=== PATIENT | female | born 1990 | race African-American/Black ===

== ENCOUNTER 2017-01-31 23:30 | Emergency (ER) | payer MEDICAID ==
[~2017-01-31] VITALS: Ht 152.4 cm; Wt 61.0 kg
[~2017-01-31 23:30] MED LIST: FOLI-43 PO; HYDR-519 PO; HYDR500C18 PO
[2017-02-01] MEDS ORDERED: MORPHINE SULFATE 4 MG/ML CPJ (NOT FOR IM USE) IV ONE (02:30)
[2017-02-01] MEDS ORDERED: DIPHENHYDRAMINE 50MG/ML VIAL IV ONE (02:30)
[2017-02-01 03:01] LABS: HEMATOCRIT. 28.6 % (36.0-48.0); HEMOGLOBIN. 9.2 g/dL (12.0-16.0); MEAN CORPUSCULAR HEMOGLOBIN 24.7 pg (28.0-32.0); MEAN CORPUSCULAR HGB CONC 32.2 g/dL (31.0-37.0); MEAN CORPUSCULAR VOLUME 76.9 fL (81.0-99.0); RED BLOOD CELL COUNT 3.72 mill/uL (4.2-5.4); RED CELL DISTRIBUTION WIDTH 23.5 % (11.6-14.6)
[2017-02-01 03:02] LABS: DIFFERENTIAL COMMENT 1
[2017-02-01 03:16] LABS: MEAN PLATELET VOLUME 9.6 fl (7.4-10.4); PLATELET 267 x1000/uL (130-400)
[2017-02-01] MEDS ORDERED: OXYCODONE HCL/ACETAMINOPHEN 5/325MG TABLET PO ONE (06:00)
[2017-02-01 06:03] LABS: ATYPICAL LYMPHOCYTES 1; NUCLEATED RED BLOOD CELLS 9 /100 WBC; PLATELET ESTIMATE NORMAL
[2017-02-01 06:04] LABS: HYPOCHROMASIA 1+
[2017-02-01 06:05] LABS: ANISOCYTOSIS 1+
[2017-02-01 06:12] VITALS: BP 131/69
== END 2017-02-01 07:00 | disposition home or self-care (01) ==
LOC: ER 23:32
DX: D57.00 Hb-SS disease with crisis, unspecified (principal); F17.210 Nicotine dependence, cigarettes, uncomplicated; Z88.1 Allergy status to other antibiotic agents; Z88.5 Allergy status to narcotic agent; Z79.899 Other long term (current) drug therapy; Z90.49 Acquired absence of other specified parts of digestive tract
CPT/HCPCS: 36415; 85025; 85044; 96374; 96375; 99284; J1200; J2270; Z7610

== ENCOUNTER 2017-02-07 18:03 | Emergency (ER) | payer MEDICAID ==
[~2017-02-07] VITALS: Ht 167.6 cm; Wt 62.0 kg
[2017-02-07] MEDS ORDERED: ACETAMINOPHEN WITH CODEINE 300/30MG TABLET PO ONE (19:00)
[2017-02-07] MEDS ORDERED: TRAMADOL 50MG TABLET PO ONE (20:15)
[2017-02-07 21:00] VITALS: BP 110/60
== END 2017-02-07 21:42 | disposition home or self-care (01) ==
LOC: ER 19:03
DX: R07.89 Other chest pain (principal); D57.1 Sickle-cell disease without crisis; Z88.6 Allergy status to analgesic agent; Z79.899 Other long term (current) drug therapy; F17.200 Nicotine dependence, unspecified, uncomplicated
CPT/HCPCS: 71010; 81025; 93005; 99284

== ENCOUNTER 2017-06-01 02:46 | Inpatient (IN) | payer MEDICAID ==
[~2017-06-01] VITALS: Ht 170.2 cm; Wt 65.8 kg
[2017-06-01] MEDS ORDERED: MORPHINE SULFATE 4 MG/ML CPJ (NOT FOR IM USE) IV STA (03:54)
[2017-06-01] MEDS ORDERED: SODIUM CHLORIDE 0.9% 1,000 ML IV ONE (03:54)
[2017-06-01] MEDS ORDERED: METOCLOPRAMIDE HCL 10MG/2ML VIAL IV ONE (04:00)
[2017-06-01] MEDS ORDERED: DIPHENHYDRAMINE 50MG/ML VIAL IV ONE (04:00)
[2017-06-01] MEDS ORDERED: LORAZEPAM 2MG/ML CPJ IV ONE (04:00)
[2017-06-01 04:37] LABS: MEAN CORPUSCULAR HEMOGLOBIN 23.3 pg (28.0-32.0); MEAN PLATELET VOLUME 9.5 fl (7.4-10.4); PLATELET 222 x1000/uL (130-400); RED BLOOD CELL COUNT 2.71 mill/uL (4.2-5.4); RED CELL DISTRIBUTION WIDTH 22.4 % (11.6-14.6)
[2017-06-01 04:40] LABS: HEMOGLOBIN. 6.3 g/dL (12.0-16.0)
[2017-06-01 04:41] LABS: HEMATOCRIT. 19.8 % (36.0-48.0)
[2017-06-01 04:50] LABS: CARBON DIOXIDE 25 mEq/L (21-32); CHLORIDE 112 mEq/L (98-107)
[2017-06-01 04:54] LABS: CLARITY URINE CLOUDY (CLEAR); COLOR URINE YELLOW (YELLOW); GLUCOSE URINE NEGATIVE (NEGATIVE); KETONES URINE NEGATIVE (NEGATIVE); LEUKOCYTE ESTERASE URINE NEGATIVE (NEGATIVE); NITRITE URINE NEGATIVE (NEGATIVE); OCCULT BLOOD URINE NEGATIVE (NEGATIVE); PROTEIN URINE NEGATIVE (NEGATIVE); SPECIFIC GRAVITY URINE 1.015 (1.005-1.030)
[2017-06-01] MEDS ORDERED: MORPHINE SULFATE 4 MG/ML CPJ (NOT FOR IM USE) IV ONE (06:45)
[2017-06-01 07:08] LABS: NUCLEATED RED BLOOD CELLS 56 /100 WBC; PLATELET ESTIMATE NORMAL
[2017-06-01 10:32] VITALS: BP 109/56
[2017-06-01] MEDS: SODIUM CHLORIDE 0.9% 1,000 ML IV SCH (11:26)
[2017-06-01] MEDS: HYDROCODONE/ACETAMINOPHEN 5/325MG TABLET PO PRN (11:27)
[2017-06-01] MEDS: FOLIC ACID 1MG TABLET PO SCH (11:27)
[2017-06-01] MEDS ORDERED: MORPHINE SULFATE 2 MG/ML CPJ (NOT FOR IM USE) IV PRN (11:45)
[2017-06-01] MEDS: DIPHENHYDRAMINE 50MG/ML VIAL IV PRN ×2 (12:08→21:23)
[2017-06-01 16:00] VITALS: BP 132/63
[2017-06-01] MEDS: HYDROMORPHONE HCL/PF 2MG/ML CPJ IV PRN ×2 (16:37→21:23)
[2017-06-01 20:00] VITALS: BP 113/73
[2017-06-01] MEDS: LORAZEPAM 2MG/ML CPJ IV PRN (23:02)
[2017-06-02] VITALS (16 sets, daily range): BP systolic 96–136; BP diastolic 45–80
[2017-06-02] MEDS: HYDROMORPHONE HCL/PF 2MG/ML CPJ IV PRN ×6 (01:33→23:00)
[2017-06-02] MEDS: DIPHENHYDRAMINE 50MG/ML VIAL IV PRN ×5 (01:35→22:59)
[2017-06-02] MEDS: LORAZEPAM 2MG/ML CPJ IV PRN (03:21)
[2017-06-02] MEDS: SODIUM CHLORIDE 0.9% 1,000 ML IV SCH ×2 (05:50→23:05)
[2017-06-02] MEDS: FOLIC ACID 1MG TABLET PO SCH (08:07)
[2017-06-02 11:21] LABS: MEAN CORPUSCULAR HEMOGLOBIN 22.4 pg (28.0-32.0); MEAN CORPUSCULAR VOLUME 73.4 fL (81.0-99.0); MEAN PLATELET VOLUME 10.2 fl (7.4-10.4); PLATELET 186 x1000/uL (130-400); RED BLOOD CELL COUNT 2.72 mill/uL (4.2-5.4); RED CELL DISTRIBUTION WIDTH 23.4 % (11.6-14.6)
[2017-06-02 11:34] LABS: HEMOGLOBIN. 6.1 g/dL (12.0-16.0)
[2017-06-02 11:35] LABS: HEMATOCRIT. 19.9 % (36.0-48.0)
[2017-06-02 19:36] LABS: VITAMIN B12 SERUM 420 pg/mL (211-911)
[2017-06-02 21:02] LABS: FERRITIN > 1650 ng/mL (10-291)
[2017-06-02 22:30] LABS: NUCLEATED RED BLOOD CELLS 116 /100 WBC
[2017-06-02 22:31] LABS: PLATELET ESTIMATE NORMAL
[2017-06-03 03:23] VITALS: BP 127/71
[2017-06-03] MEDS: HYDROMORPHONE HCL/PF 2MG/ML CPJ IV PRN ×5 (03:24→20:19)
[2017-06-03] MEDS: DIPHENHYDRAMINE 50MG/ML VIAL IV PRN ×5 (03:24→20:20)
[2017-06-03 07:20] LABS: BASOPHILS % 0.7 % (0.0-2.0); EOSINOPHILS % 0.5 % (0.0-5.0); HEMATOCRIT. 27.1 % (36.0-48.0); LYMPHOCYTES % 14.5 % (20.0-50.0); MEAN CORPUSCULAR HEMOGLOBIN 24.9 pg (28.0-32.0); MEAN CORPUSCULAR VOLUME 74.7 fL (81.0-99.0); MEAN PLATELET VOLUME 10.2 fl (7.4-10.4); MONOCYTES % 4.1 % (2.0-8.0); NEUTROPHILS % 80.2 % (40.0-76.0); PLATELET 208 x1000/uL (130-400); RED BLOOD CELL COUNT 3.63 mill/uL (4.2-5.4); RED CELL DISTRIBUTION WIDTH 24.5 % (11.6-14.6)
[2017-06-03 07:44] VITALS: BP 120/74
[2017-06-03 08:11] LABS: CARBON DIOXIDE 24 mEq/L (21-32); CHLORIDE 111 mEq/L (98-107)
[2017-06-03] MEDS: FOLIC ACID 1MG TABLET PO SCH (08:16)
[2017-06-03] MEDS: LORAZEPAM 2MG/ML CPJ IV PRN (11:26)
[2017-06-03 11:42] VITALS: BP 123/73
[2017-06-03] MEDS: SODIUM CHLORIDE 0.9% 1,000 ML IV SCH (13:22)
[2017-06-03 15:44] VITALS: BP 110/74
[2017-06-03 20:22] VITALS: BP 126/76
[2017-06-04] VITALS: BP 119/63
[2017-06-04] MEDS: DIPHENHYDRAMINE 50MG/ML VIAL IV PRN ×6 (00:07→21:16)
[2017-06-04] MEDS: HYDROMORPHONE HCL/PF 2MG/ML CPJ IV PRN ×7 (00:07→21:10)
[2017-06-04] MEDS: SODIUM CHLORIDE 0.9% 1,000 ML IV SCH ×2 (01:42→16:10)
[2017-06-04 04:00] VITALS: BP 121/71
[2017-06-04 08:00] VITALS: BP 139/56
[2017-06-04] MEDS: FOLIC ACID 1MG TABLET PO SCH (08:08)
[2017-06-04 08:28] LABS: BASOPHILS % 2.1 % (0.0-2.0); EOSINOPHILS % 0.9 % (0.0-5.0); HEMATOCRIT. 25.6 % (36.0-48.0); HEMOGLOBIN. 8.3 g/dL (12.0-16.0); LYMPHOCYTES % 22.7 % (20.0-50.0); MEAN CORPUSCULAR HEMOGLOBIN 24.6 pg (28.0-32.0); MEAN CORPUSCULAR VOLUME 75.9 fL (81.0-99.0); MEAN PLATELET VOLUME 9.2 fl (7.4-10.4); MONOCYTES % 7.7 % (2.0-8.0); NEUTROPHILS % 66.6 % (40.0-76.0); PLATELET 167 x1000/uL (130-400); RED BLOOD CELL COUNT 3.37 mill/uL (4.2-5.4); RED CELL DISTRIBUTION WIDTH 23.8 % (11.6-14.6)
[2017-06-04 08:55] LABS: CARBON DIOXIDE 23 mEq/L (21-32); CHLORIDE 108 mEq/L (98-107)
[2017-06-04 12:00] VITALS: BP 136/59
[2017-06-04 16:00] VITALS: BP 122/71
[2017-06-04 20:00] VITALS: BP 117/60
[2017-06-04] MEDS: HYDROCODONE/ACETAMINOPHEN 5/325MG TABLET PO PRN (22:10)
[2017-06-05] VITALS: BP 115/69
[2017-06-05] MEDS: HYDROMORPHONE HCL/PF 2MG/ML CPJ IV PRN ×11 (00:03→23:59)
[2017-06-05] MEDS: SODIUM CHLORIDE 0.9% 1,000 ML IV SCH ×4 (00:53→23:58)
[2017-06-05] MEDS: LORAZEPAM 2MG/ML CPJ IV PRN ×2 (02:04→11:24)
[2017-06-05 04:00] VITALS: BP 119/69
[2017-06-05 06:57] LABS: CARBON DIOXIDE 19 mEq/L (21-32); CHLORIDE 111 mEq/L (98-107)
[2017-06-05 07:31] LABS: HEMATOCRIT. 24.3 % (36.0-48.0); HEMOGLOBIN. 7.9 g/dL (12.0-16.0); MEAN CORPUSCULAR HEMOGLOBIN 24.7 pg (28.0-32.0); MEAN CORPUSCULAR VOLUME 75.8 fL (81.0-99.0); MEAN PLATELET VOLUME 10.5 fl (7.4-10.4); PLATELET 183 x1000/uL (130-400); RED BLOOD CELL COUNT 3.21 mill/uL (4.2-5.4)
[2017-06-05 08:00] VITALS: BP 109/60
[2017-06-05] MEDS: FOLIC ACID 1MG TABLET PO SCH (08:43)
[2017-06-05 11:45] VITALS: BP 111/63
[2017-06-05] MEDS ORDERED: ACETAMINOPHEN 325MG TABLET PO PRN (13:15)
[2017-06-05 14:09] LABS: NUCLEATED RED BLOOD CELLS 386 /100 WBC; PLATELET ESTIMATE NORMAL
[2017-06-05] MEDS ORDERED: CEFTRIAXONE 1 G PREMIX 50 ML IV SCH (14:30)
[2017-06-05 16:00] VITALS: BP 107/66
[2017-06-05] MEDS ORDERED: LEVOFLOXACIN 500MG PREMIX 100 ML IV SCH (16:00)
[2017-06-05] MEDS: HYDROCODONE/ACETAMINOPHEN 5/325MG TABLET PO PRN (18:08)
[2017-06-05] MEDS: DIPHENHYDRAMINE 50MG/ML VIAL IV PRN (18:58)
[2017-06-05 19:57] VITALS: BP 113/63
[2017-06-06] VITALS (8 sets, daily range): BP systolic 101–121; BP diastolic 54–73
[2017-06-06] MEDS: DIPHENHYDRAMINE 50MG/ML VIAL IV PRN ×5 (01:51→23:59)
[2017-06-06] MEDS: HYDROMORPHONE HCL/PF 2MG/ML CPJ IV PRN ×10 (02:00→21:25)
[2017-06-06] MEDS: SODIUM CHLORIDE 0.9% 1,000 ML IV SCH ×3 (07:23→20:19)
[2017-06-06] MEDS: FOLIC ACID 1MG TABLET PO SCH (08:34)
[2017-06-06 09:40] LABS: HEMATOCRIT. 23.5 % (36.0-48.0); HEMOGLOBIN. 7.8 g/dL (12.0-16.0); MEAN CORPUSCULAR HEMOGLOBIN 25.2 pg (28.0-32.0); MEAN CORPUSCULAR VOLUME 76.5 fL (81.0-99.0); PLATELET 138 x1000/uL (130-400); RED BLOOD CELL COUNT 3.07 mill/uL (4.2-5.4); RED CELL DISTRIBUTION WIDTH 23.3 % (11.6-14.6)
[2017-06-06 09:53] LABS: CARBON DIOXIDE 25 mEq/L (21-32); CHLORIDE 108 mEq/L (98-107)
[2017-06-06] MEDS: NITROFURANTOIN 100MG M/M CAPSULE PO SCH ×2 (13:05→20:19)
[2017-06-07] MEDS: HYDROMORPHONE HCL/PF 2MG/ML CPJ IV PRN ×6 (00:05→13:57)
[2017-06-07 02:07] VITALS: BP 105/68
[2017-06-07 05:20] VITALS: BP 105/66
[2017-06-07] MEDS: DIPHENHYDRAMINE 50MG/ML VIAL IV PRN ×2 (05:21→11:10)
[2017-06-07] MEDS: SODIUM CHLORIDE 0.9% 1,000 ML IV SCH (05:31)
[2017-06-07 07:24] LABS: NUCLEATED RED BLOOD CELLS 277 /100 WBC
[2017-06-07 07:27] LABS: PLATELET ESTIMATE NORMAL
[2017-06-07 08:00] VITALS: BP_SYST 103; BP_SYST 144; BP_DIAS 56; BP_DIAS 77
[2017-06-07] MEDS: NITROFURANTOIN 100MG M/M CAPSULE PO SCH (08:37)
[2017-06-07] MEDS: FOLIC ACID 1MG TABLET PO SCH (08:37)
[2017-06-07] MEDS ORDERED: HYDR-522 PO (11:39)
[2017-06-07] MEDS ORDERED: NITR-87 PO (11:42)
[2017-06-07 11:58] VITALS: BP 108/62
[2017-06-07 13:57] VITALS: BP 111/60
[2017-07-01] MEDS ORDERED: LEVO500T2 PO (19:48)
[2017-07-01] MEDS ORDERED: PROM25TA13 PO (19:51)
[2017-07-01] MEDS ORDERED: ALBU05 IH (19:51)
== END 2017-06-07 15:21 | disposition home or self-care (01) | DRG 720 ==
LOC: ER 02:46 → 7WST 06:45 → EDBEDREQTM 06:47 → EDBEDREQ 06:47 → ENRESERV 07:02 → 7WST 11:10 → 8WST 12:31
PROVIDERS: ADMIT Internal Medicine; ATTEND Internal Medicine
PROC: 30233N1 Transfusion of Nonautologous Red Blood Cells into Peripheral Vein, Percutaneous Approach (ICD-10-PCS; principal; 2017-06-02)
DX: A41.9 Sepsis, unspecified organism (principal); D57.00 Hb-SS disease with crisis, unspecified; N39.0 Urinary tract infection, site not specified; D75.89 Other specified diseases of blood and blood-forming organs; B96.20 Unspecified Escherichia coli [E. coli] as the cause of diseases classified elsewhere; R70.1 Abnormal plasma viscosity; D64.9 Anemia, unspecified; Z86.718 Personal history of other venous thrombosis and embolism; Z90.49 Acquired absence of other specified parts of digestive tract; Z88.5 Allergy status to narcotic agent; Z88.1 Allergy status to other antibiotic agents; Z79.1 Long term (current) use of non-steroidal anti-inflammatories (NSAID); Z79.899 Other long term (current) drug therapy
CPT/HCPCS: 36415; 71010; 80048; 80053; 81001; 81025; 82607; 82728; 82746; 83540; 83550; 84443; 85025; 85044; 86850; 86900; 86920; 87040; 87077; 87086; 87186; 93005; 96361; 96374; 96375; 96376; 99285; C1893; J0696; J1170; J1200; J1956; J2060; J2270; J2765; J7030; J7040; P9016

== ENCOUNTER 2017-06-21 16:04 | Inpatient (IN) | payer MEDICAID ==
[~2017-06-21] VITALS: Ht 162.6 cm; Wt 58.8 kg
[2017-06-21] VITALS (11 sets, daily range): BP systolic 81–105; BP diastolic 39–66
[~2017-06-21 16:04] MED LIST changes: -HYDR-519 PO; +HYDR-522 PO; +NITR-87 PO
[2017-06-21] MEDS ORDERED: SODIUM CHLORIDE 0.9% 1000ML BAG (SEPSIS BOLUS) IV ONE (16:15)
[2017-06-21] MEDS ORDERED: LEVOFLOXACIN 750MG PREMIX 150 ML IV ONE (16:15)
[2017-06-21] MEDS ORDERED: ALBUTEROL (0.083%) 2.5MG/3ML NEB HHN ONE (16:30)
[2017-06-21] MEDS ORDERED: IPRATROPIUM BROMIDE (0.02%) 0.5MG/2.5ML NEB HHN ONE (16:30)
[2017-06-21] MEDS ORDERED: METHYLPREDNISOLONE SOD SUCC 125 MG/2 ML VIAL IV ONE (16:30)
[2017-06-21] MEDS ORDERED: DEXTROSE 50% WATER 50ML SYRINGE IV ONE ×2 (16:41→16:45)
[2017-06-21] MEDS ORDERED: CALCIUM GLUCONATE 100MG/ML 10ML VIAL IV ONE (16:45)
[2017-06-21 17:06] LABS: BG BASE EXCESS -20.1 mmol/L (-2.0-2.0); BG CARBOXYHEMOGLOBIN 1.7 % (0.5-1.5); BG DEOXYHEMOGLOBIN 6.7 % (0.0-5.0); BG FRACTION INSPIRED OXYGEN 21; BG HCO3 ACT 6.6 mmol/L (22.0-26.0); BG METHEMOGLOBIN 0.7 % (0.0-1.5); BG OXYGEN SATURATION 93.1 % (92.0-98.5); BG OXYHEMOGLOBIN 90.9 % (94.0-97.0); BG PCO2 18.5 mmHg (35.0-45.0); BG PH 7.171 (7.350-7.450); BG PO2 94.6 mmHg (75.0-100.0); BG SAMPLE SITE LEFT BRACHIAL; BG TOTAL HEMOGLOBIN 5.4 g/dL (12.0-18.0); BG VENT MODE ROOM AIR
[2017-06-21] MEDS ORDERED: ACETAMINOPHEN 325MG SUPP PR ONE (17:15)
[2017-06-21] MEDS ORDERED: SODIUM BICARBONATE 8.4% 1 MEQ/ML 50ML SYR IV ONE ×3 (17:15→20:30)
[2017-06-21] MEDS ORDERED: SODIUM BICARBONATE 150 MEQ in DEXTROSE 5% WATER 1,000 ML IV SCH (17:15)
[2017-06-21 17:45] LABS: CHLORIDE 106 mEq/L (98-107); MEAN CORPUSCULAR HEMOGLOBIN 24.4 pg (28.0-32.0); MEAN CORPUSCULAR VOLUME 74.7 fL (81.0-99.0); MEAN PLATELET VOLUME 9.8 fl (7.4-10.4); PLATELET 222 x1000/uL (130-400); RED BLOOD CELL COUNT 2.11 mill/uL (4.2-5.4); RED CELL DISTRIBUTION WIDTH 31.5 % (11.6-14.6)
[2017-06-21 17:47] LABS: INR 2.1; PROTHROMBIN TIME 21.8 sec (9.4-11.6)
[2017-06-21 17:53] LABS: HEMOGLOBIN. 5.1 g/dL (12.0-16.0)
[2017-06-21 17:54] LABS: HEMATOCRIT. 15.8 % (36.0-48.0)
[2017-06-21] MEDS ORDERED: LORAZEPAM 2MG/ML CPJ ONE (17:57)
[2017-06-21] MEDS ORDERED: LORAZEPAM 2MG/ML CPJ IV ONE (18:00)
[2017-06-21] MEDS ORDERED: VECURONIUM BROMIDE 10 MG/VIAL IV ONE (18:00)
[2017-06-21] MEDS ORDERED: ETOMIDATE 2MG/ML 10ML VIAL IV ONE (18:00)
[2017-06-21] MEDS ORDERED: MIDAZOLAM HCL 50 MG in DEXTROSE 5% WATER 40 ML IV ONE (18:00)
[2017-06-21 18:02] LABS: CARBON DIOXIDE 9 mEq/L (21-32)
[2017-06-21] MEDS ORDERED: NOREPINEPHRINE 4 MG in DEXT 5% WATER 246 ML IV ONE (18:15)
[2017-06-21] MEDS ORDERED: MIDAZOLAM HCL 50 MG in DEXTROSE 5% WATER 40 ML IV SCH (18:15)
[2017-06-21] MEDS ORDERED: NOREPINEPHRINE 4 MG in DEXTROSE 5% WATER 250 ML IV PRN (18:15)
[2017-06-21 18:16] LABS: BG BASE EXCESS -17.7 mmol/L (-2.0-2.0); BG CARBOXYHEMOGLOBIN 1.1 % (0.5-1.5); BG DEOXYHEMOGLOBIN 19.1 % (0.0-5.0); BG HCO3 ACT 9.9 mmol/L (22.0-26.0); BG METHEMOGLOBIN 0.7 % (0.0-1.5); BG OXYGEN SATURATION 80.5 % (92.0-98.5); BG OXYHEMOGLOBIN 79.1 % (94.0-97.0); BG PCO2 31.2 mmHg (35.0-45.0); BG PO2 65.9 mmHg (75.0-100.0); BG SAMPLE SITE RIGHT RADIAL; BG TIDAL VOLUME(mL) 500 mL; BG TOTAL HEMOGLOBIN 5.2 g/dL (12.0-18.0); BG VENT MODE VENT - A/C; BG VENT RATE 60 set
[2017-06-21 18:27] LABS: CLARITY URINE CLOUDY (CLEAR); COLOR URINE DARK YELLOW (YELLOW); GLUCOSE URINE NEGATIVE (NEGATIVE); KETONES URINE TRACE (NEGATIVE); LEUKOCYTE ESTERASE URINE TRACE (NEGATIVE); NITRITE URINE NEGATIVE (NEGATIVE); OCCULT BLOOD URINE 2+ (NEGATIVE); PROTEIN URINE 2+ (NEGATIVE); SPECIFIC GRAVITY URINE 1.019 (1.005-1.030)
[2017-06-21] MEDS ORDERED: VANCOMYCIN 1 G PREMIX 200 ML IV SCH ×2 (18:30→19:00)
[2017-06-21] MEDS ORDERED: PIPERACILLIN/TAZOBACTAM 3.375GM/50ML PREMIX IV ONE (18:30)
[2017-06-21 18:41] LABS: *AMPHETAMINES SCREEN URINE NEGATIVE (NEGATIVE); *BARBITURATES SCREEN URINE NEGATIVE (NEGATIVE); *BENZODIAZEPINES SCREEN URINE NEGATIVE (NEGATIVE); *COCAINE SCREEN URINE NEGATIVE (NEGATIVE); CANNABINOID URINE SCREEN PRESUMTIVE POSITIVE (NEGATIVE); METHADONE URINE SCREEN NEGATIVE (NEGATIVE); OPIATES URINE SCREEN PRESUMTIVE POSITIVE (NEGATIVE); PHENCYCLIDINE URINE SCREEN NEGATIVE (NEGATIVE)
[2017-06-21] MEDS ORDERED: ACETAMINOPHEN 650MG SUPP PR PRN (19:00)
[2017-06-21] MEDS ORDERED: ACETAMINOPHEN 325MG TABLET PO PRN (19:00)
[2017-06-21] MEDS ORDERED: MAGNESIUM/ALUMINUM HYDROXIDE/SIMETHICONE 30ML UDC PO PRN (19:00)
[2017-06-21] MEDS ORDERED: NA PHOS,M-B/NA PHOS,DI-BA ENEMA 118ML PR PRN (19:00)
[2017-06-21] MEDS ORDERED: LEVOFLOXACIN 500MG PREMIX 100 ML IV SCH (19:00)
[2017-06-21] MEDS ORDERED: ONDANSETRON HCL 4MG/2ML VIAL IV PRN (19:00)
[2017-06-21] MEDS ORDERED: IPRATROPIUM/ALBUTEROL 0.5-3(2.5)MG/3ML NEB INH PRN (19:00)
[2017-06-21] MEDS ORDERED: LORAZEPAM 2MG/ML CPJ IV PRN (19:00)
[2017-06-21] MEDS ORDERED: SODIUM CHLORIDE 0.9% 1,000 ML IV SCH (19:50)
[2017-06-21 20:13] LABS: BG BASE EXCESS -14.6 mmol/L (-2.0-2.0); BG CARBOXYHEMOGLOBIN 0.6 % (0.5-1.5); BG DEOXYHEMOGLOBIN 27.1 % (0.0-5.0); BG FRACTION INSPIRED OXYGEN 100; BG HCO3 ACT 12.7 mmol/L (22.0-26.0); BG METHEMOGLOBIN 0.5 % (0.0-1.5); BG OXYGEN SATURATION 72.6 % (92.0-98.5); BG OXYHEMOGLOBIN 71.8 % (94.0-97.0); BG PH 7.167 (7.350-7.450); BG PO2 48.2 mmHg (75.0-100.0); BG SAMPLE SITE RIGHT RADIAL; BG TIDAL VOLUME(mL) 500 mL; BG TOTAL HEMOGLOBIN 7.6 g/dL (12.0-18.0); BG VENT MODE VENT - A/C; BG VENT RATE 30 set
[2017-06-21 20:20] LABS: NUCLEATED RED BLOOD CELLS 15 /100 WBC; PLATELET ESTIMATE NORMAL
[2017-06-21] MEDS ORDERED: SODIUM BICARBONATE 8.4% 1 MEQ/ML 50ML SYR IV NR (21:00)
[2017-06-21] MEDS: SODIUM CHLORIDE 0.9% 1,000 ML IV SCH ×2 (21:46→23:58)
[2017-06-21 21:56] LABS: MEAN CORPUSCULAR HEMOGLOBIN 25.6 pg (28.0-32.0); MEAN CORPUSCULAR VOLUME 79.3 fL (81.0-99.0); MEAN PLATELET VOLUME 9.6 fl (7.4-10.4); PLATELET 185 x1000/uL (130-400); RED BLOOD CELL COUNT 2.63 mill/uL (4.2-5.4); RED CELL DISTRIBUTION WIDTH 31.2 % (11.6-14.6)
[2017-06-21] MEDS: SODIUM CHLORIDE 0.9% INJ 3ML FLUSH IVF SCH (22:00)
[2017-06-21] MEDS: PROPOFOL 10MG/ML 100ML 100 ML IV PRN (22:17)
[2017-06-21 22:24] LABS: HEMATOCRIT. 20.8 % (36.0-48.0); HEMOGLOBIN. 6.7 g/dL (12.0-16.0)
[2017-06-21 22:29] LABS: BG BASE EXCESS -9.4 mmol/L (-2.0-2.0); BG CARBOXYHEMOGLOBIN 0.5 % (0.5-1.5); BG DEOXYHEMOGLOBIN 2.1 % (0.0-5.0); BG FRACTION INSPIRED OXYGEN 100; BG HCO3 ACT 15.7 mmol/L (22.0-26.0); BG METHEMOGLOBIN 0.4 % (0.0-1.5); BG OXYGEN SATURATION 97.9 % (92.0-98.5); BG PCO2 30.5 mmHg (35.0-45.0); BG PH 7.329 (7.350-7.450); BG PO2 115.6 mmHg (75.0-100.0); BG SAMPLE SITE RIGHT RADIAL; BG TIDAL VOLUME(mL) 500 mL; BG TOTAL HEMOGLOBIN 7.1 g/dL (12.0-18.0); BG VENT MODE VENT - A/C; BG VENT RATE 30 set
[2017-06-21 23:07] LABS: NUCLEATED RED BLOOD CELLS 5 /100 WBC; PLATELET ESTIMATE NORMAL
[2017-06-21] MEDS ORDERED: DEXTROSE 50% WATER 50ML SYRINGE IV PRN (23:30)
[2017-06-22] VITALS (111 sets, daily range): BP systolic 81–143; BP diastolic 18–112
[2017-06-22] MEDS ORDERED: IPRATROPIUM/ALBUTEROL 0.5-3(2.5)MG/3ML NEB INH SCH
[2017-06-22] MEDS ORDERED: NOREPINEPHRINE 4 MG in DEXT 5% WATER 246 ML IV PRN ×2
[2017-06-22] MEDS: PIPERACILLIN/TAZ 3.375G PREMIX 50 ML IV SCH ×3 (00:27→23:17)
[2017-06-22] MEDS ORDERED: NOREPINEPHRINE 16 MG in DEXT 5% WATER 234 ML IV PRN (01:00)
[2017-06-22] MEDS ORDERED: VANCOMYCIN 1250MG in DEXTROSE 5% WATER 250ML IV NR (01:00)
[2017-06-22 01:05] LABS: CARBON DIOXIDE 19 mEq/L (21-32); CHLORIDE 106 mEq/L (98-107)
[2017-06-22] MEDS ORDERED: SODIUM BICARBONATE 150 MEQ in SODIUM CHLORIDE 0.45% 1,000 ML IV SCH ×4 (02:00→19:00)
[2017-06-22] MEDS: PROPOFOL 10MG/ML 100ML 100 ML IV PRN ×2 (02:57→07:28)
[2017-06-22 05:34] LABS: TROPONIN I 0.22 ng/mL (0.00-0.04)
[2017-06-22 06:14] LABS: HEMATOCRIT. 23.8 % (36.0-48.0); MEAN CORPUSCULAR HEMOGLOBIN 26.2 pg (28.0-32.0); MEAN CORPUSCULAR VOLUME 78.2 fL (81.0-99.0); MEAN PLATELET VOLUME 9.4 fl (7.4-10.4); PLATELET 171 x1000/uL (130-400); RED BLOOD CELL COUNT 3.04 mill/uL (4.2-5.4); RED CELL DISTRIBUTION WIDTH 28.9 % (11.6-14.6)
[2017-06-22 06:32] LABS: CARBON DIOXIDE 18 mEq/L (21-32); CHLORIDE 107 mEq/L (98-107); CREATINE KINASE 359 IU/L (26-192); HDL CHOLESTEROL 9 mg/dL (40-59)
[2017-06-22 06:44] LABS: LDL CHOLESTEROL 9 mg/dL (5-100); TROPONIN I 0.63 ng/mL (0.00-0.04)
[2017-06-22 07:49] LABS: NUCLEATED RED BLOOD CELLS 3 /100 WBC
[2017-06-22 07:50] LABS: PLATELET ESTIMATE NORMAL
[2017-06-22] MEDS ORDERED: POTASSIUM CHLORIDE INJ 40 MEQ in DEXT 5% WATER 250 ML IV NR (08:00)
[2017-06-22 08:13] LABS: BG BASE EXCESS -4.6 mmol/L (-2.0-2.0); BG CARBOXYHEMOGLOBIN 0.3 % (0.5-1.5); BG DEOXYHEMOGLOBIN 0.8 % (0.0-5.0); BG FRACTION INSPIRED OXYGEN 100; BG HCO3 ACT 18.7 mmol/L (22.0-26.0); BG METHEMOGLOBIN 0.4 % (0.0-1.5); BG OXYGEN SATURATION 99.2 % (92.0-98.5); BG OXYHEMOGLOBIN 98.5 % (94.0-97.0); BG PCO2 28.1 mmHg (35.0-45.0); BG PH 7.442 (7.350-7.450); BG PO2 260.1 mmHg (75.0-100.0); BG SAMPLE SITE LEFT BRACHIAL; BG TIDAL VOLUME(mL) 500 mL; BG TOTAL HEMOGLOBIN 8.5 g/dL (12.0-18.0); BG VENT MODE VENT - A/C; BG VENT RATE 28 set
[2017-06-22] MEDS: BLOOD SUGAR DIAGNOSTIC STRIP TEST SCH ×4 (08:18→20:50)
[2017-06-22] MEDS: INSULIN LISPRO 100 UNITS/ML SUBCUT SCH ×4 (08:20→20:50)
[2017-06-22] MEDS: SODIUM CHLORIDE 0.9% INJ 3ML FLUSH IVF SCH ×3 (08:33→21:28)
[2017-06-22 08:41] LABS: PHOSPHORUS 2.2 mg/dL (2.5-4.9); T4 FREE 1.2 ng/dL (0.76-1.46)
[2017-06-22] MEDS ORDERED: FUROSEMIDE 40MG/4ML VIAL IVP NR (09:45)
[2017-06-22] MEDS: VANCOMYCIN 1250MG in DEXTROSE 5% WATER 250ML IV SCH ×2 (09:48→20:42)
[2017-06-22] MEDS: PANTOPRAZOLE SODIUM 40 MG/VIAL IV SCH (09:49)
[2017-06-22] MEDS ORDERED: MAGNESIUM 2 G PREMIX 50 ML IV SCH (10:00)
[2017-06-22] MEDS: FENTANYL CITRATE/PF 500 MCG in SODIUM CHLORIDE 0.9% 40 ML IV PRN ×3 (10:16→21:16)
[2017-06-22] MEDS ORDERED: POTASSIUM PHOS,M-BASIC-D-BASIC 15 MMOL in DEXT 5% WATER 245 ML IV NR (11:00)
[2017-06-22] MEDS ORDERED: VANCOMYCIN 1 G PREMIX 200 ML IV SCH (11:00)
[2017-06-22] MEDS: PHENYLEPHRINE 40 MG in DEXT 5% WATER 246 ML IV PRN (11:02)
[2017-06-22] MEDS: ACETYLCYSTEINE 100MG/ML 10% VIAL 4ML INH SCH ×2 (11:21→23:50)
[2017-06-22] MEDS: IPRATROPIUM/ALBUTEROL 0.5-3(2.5)MG/3ML NEB HHN SCH ×4 (11:21→23:50)
[2017-06-22] MEDS ORDERED: LIDOCAINE HCL 1% 20ML VIAL (Pyxis) INJ ONE (12:12)
[2017-06-22] MEDS: LORAZEPAM 2MG/ML CPJ IV PRN (12:27)
[2017-06-22 12:43] LABS: HEPATITIS B SURFACE ANTIGEN NEGATIVE
[2017-06-22 13:11] LABS: HEPATITIS B CORE AB IGM NEGATIVE
[2017-06-22 13:12] LABS: HEPATITIS A AB IGM NEGATIVE (NEGATIVE)
[2017-06-22 13:16] LABS: BG BASE EXCESS 0.5 mmol/L (-2.0-2.0); BG CARBOXYHEMOGLOBIN 0.1 % (0.5-1.5); BG DEOXYHEMOGLOBIN 0.9 % (0.0-5.0); BG FRACTION INSPIRED OXYGEN 80; BG HCO3 ACT 24.3 mmol/L (22.0-26.0); BG METHEMOGLOBIN 0.6 % (0.0-1.5); BG OXYGEN SATURATION 99.1 % (92.0-98.5); BG OXYHEMOGLOBIN 98.4 % (94.0-97.0); BG PCO2 35.7 mmHg (35.0-45.0); BG PH 7.451 (7.350-7.450); BG PO2 199.9 mmHg (75.0-100.0); BG SAMPLE SITE LEFT RADIAL; BG TIDAL VOLUME(mL) 500 mL; BG TOTAL HEMOGLOBIN 8.4 g/dL (12.0-18.0); BG VENT MODE VENT - A/C; BG VENT RATE 22 set
[2017-06-22 14:54] LABS: HEMATOCRIT. 24.3 % (36.0-48.0); HEMOGLOBIN. 8.1 g/dL (12.0-16.0); MEAN CORPUSCULAR HEMOGLOBIN 25.6 pg (28.0-32.0); MEAN CORPUSCULAR VOLUME 76.5 fL (81.0-99.0); MEAN PLATELET VOLUME 9.3 fl (7.4-10.4); PLATELET 144 x1000/uL (130-400); RED BLOOD CELL COUNT 3.17 mill/uL (4.2-5.4); RED CELL DISTRIBUTION WIDTH 28.6 % (11.6-14.6)
[2017-06-22 14:59] LABS: CHLORIDE 106 mEq/L (98-107)
[2017-06-22] MEDS ORDERED: PIPERACILLIN/TAZ 3.375G PREMIX 50 ML IV SCH (15:00)
[2017-06-22 15:08] LABS: CARBON DIOXIDE 25 mEq/L (21-32); CREATINE KINASE MB FRACTION 21.1 ng/mL (0.5-3.6)
[2017-06-22] MEDS ORDERED: ETOMIDATE 2MG/ML 10ML VIAL IV ONE (16:00)
[2017-06-22] MEDS ORDERED: STERILE WATER FOR INJECTION 10ML VIAL ONE (16:00)
[2017-06-22] MEDS ORDERED: SUCCINYLCHOLINE CHLORIDE 200MG/10ML VIAL IV ONE (16:00)
[2017-06-22] MEDS ORDERED: VECURONIUM BROMIDE 10 MG/VIAL IV ONE (16:00)
[2017-06-22 17:27] LABS: TOTAL IRON BINDING CAPACITY 162 ug/dL (250-450)
[2017-06-22] MEDS: LEVOFLOXACIN 500MG PREMIX 100 ML IV SCH (18:10)
[2017-06-22 18:20] LABS: FERRITIN > 1650 ng/mL (10-291)
[2017-06-22 18:31] LABS: VITAMIN B12 SERUM > 2000.0 pg/mL (211-911)
[2017-06-22] MEDS ORDERED: LEVOFLOXACIN 250MG PREMIX 50 ML IV SCH (19:00)
[2017-06-22 20:47] LABS: HCG SCREEN NEGATIVE
[2017-06-23] VITALS (97 sets, daily range): BP systolic 97–180; BP diastolic 41–106
[2017-06-23] MEDS: LORAZEPAM 2MG/ML CPJ IV PRN ×3 (02:15→18:25)
[2017-06-23] MEDS: FENTANYL CITRATE/PF 500 MCG in SODIUM CHLORIDE 0.9% 40 ML IV PRN ×4 (02:51→21:36)
[2017-06-23] MEDS: PHENYLEPHRINE 40 MG in DEXT 5% WATER 246 ML IV PRN ×2 (03:40→20:26)
[2017-06-23] MEDS: IPRATROPIUM/ALBUTEROL 0.5-3(2.5)MG/3ML NEB HHN SCH ×5 (04:00→20:12)
[2017-06-23] MEDS: SODIUM CHLORIDE 0.9% INJ 3ML FLUSH IVF SCH ×3 (05:27→21:10)
[2017-06-23] MEDS: PIPERACILLIN/TAZ 3.375G PREMIX 50 ML IV SCH ×4 (05:27→23:44)
[2017-06-23 06:04] LABS: MEAN CORPUSCULAR HEMOGLOBIN 25.9 pg (28.0-32.0); PLATELET 107 x1000/uL (130-400); RED BLOOD CELL COUNT 2.62 mill/uL (4.2-5.4); RED CELL DISTRIBUTION WIDTH 28.3 % (11.6-14.6)
[2017-06-23 06:08] LABS: INR 1.4; PROTHROMBIN TIME 14.6 sec (9.4-11.6)
[2017-06-23 06:14] LABS: NUCLEATED RED BLOOD CELLS 8 /100 WBC
[2017-06-23 06:15] LABS: PLATELET ESTIMATE NORMAL
[2017-06-23 06:34] LABS: CHLORIDE 108 mEq/L (98-107)
[2017-06-23 06:53] LABS: CARBON DIOXIDE 23 mEq/L (21-32); CREATINE KINASE MB FRACTION 9.3 ng/mL (0.5-3.6); HEMATOCRIT. 20.2 % (36.0-48.0); HEMOGLOBIN. 6.8 g/dL (12.0-16.0); PHOSPHORUS 1.6 mg/dL (2.5-4.9); TOTAL IRON BINDING CAPACITY 134 ug/dL (250-450)
[2017-06-23 07:49] LABS: NUCLEATED RED BLOOD CELLS 7 /100 WBC; PLATELET ESTIMATE SLIGHTLY DECREASED
[2017-06-23] MEDS: ACETYLCYSTEINE 100MG/ML 10% VIAL 4ML INH SCH ×2 (08:08→13:02)
[2017-06-23] MEDS: INSULIN LISPRO 100 UNITS/ML SUBCUT SCH ×4 (08:20→23:45)
[2017-06-23] MEDS ORDERED: POTASSIUM PHOS,M-BASIC-D-BASIC 15 MMOL in DEXT 5% WATER 245 ML IV NR (08:30)
[2017-06-23] MEDS: BLOOD SUGAR DIAGNOSTIC STRIP TEST SCH ×4 (08:34→23:44)
[2017-06-23] MEDS ORDERED: POTASSIUM CHLORIDE INJ 40 MEQ in DEXT 5% WATER 250 ML IV SCH (09:00)
[2017-06-23 09:02] LABS: BG CARBOXYHEMOGLOBIN 0.1 % (0.5-1.5); BG DEOXYHEMOGLOBIN 5.2 % (0.0-5.0); BG FRACTION INSPIRED OXYGEN 70; BG HCO3 ACT 26.2 mmol/L (22.0-26.0); BG METHEMOGLOBIN 0.6 % (0.0-1.5); BG OXYGEN SATURATION 94.8 % (92.0-98.5); BG OXYHEMOGLOBIN 94.1 % (94.0-97.0); BG PCO2 38.6 mmHg (35.0-45.0); BG PH 7.449 (7.350-7.450); BG PO2 79.6 mmHg (75.0-100.0); BG SAMPLE SITE RIGHT RADIAL; BG TOTAL HEMOGLOBIN 7.7 g/dL (12.0-18.0)
[2017-06-23] MEDS: PANTOPRAZOLE SODIUM 40 MG/VIAL IV SCH (09:51)
[2017-06-23] MEDS: VANCOMYCIN 1 G PREMIX 200 ML IV SCH ×2 (10:45→21:10)
[2017-06-23] MEDS ORDERED: ETOMIDATE 2MG/ML 10ML VIAL IV ONE (11:43)
[2017-06-23 14:18] LABS: BG BASE EXCESS 3.2 mmol/L (-2.0-2.0); BG CARBOXYHEMOGLOBIN 0.2 % (0.5-1.5); BG DEOXYHEMOGLOBIN 2.7 % (0.0-5.0); BG FRACTION INSPIRED OXYGEN 60; BG HCO3 ACT 27.8 mmol/L (22.0-26.0); BG METHEMOGLOBIN 0.1 % (0.0-1.5); BG OXYGEN SATURATION 97.3 % (92.0-98.5); BG PCO2 42.8 mmHg (35.0-45.0); BG PO2 109.5 mmHg (75.0-100.0); BG SAMPLE SITE RIGHT BRACHIAL; BG TIDAL VOLUME(mL) 500 mL; BG TOTAL HEMOGLOBIN 6.8 g/dL (12.0-18.0); BG VENT MODE VENT - A/C; BG VENT RATE 14 set
[2017-06-23] MEDS: MIDAZOLAM HCL 50 MG in DEXTROSE 5% WATER 40 ML IV PRN ×2 (14:39→21:36)
[2017-06-23] MEDS: LEVOFLOXACIN 500MG PREMIX 100 ML IV SCH (19:55)
[2017-06-23 21:15] LABS: HAPTOGLOBIN 247 mg/dL (30-200)
[2017-06-24] VITALS (93 sets, daily range): BP systolic 91–127; BP diastolic 43–78
[2017-06-24] MEDS: IPRATROPIUM/ALBUTEROL 0.5-3(2.5)MG/3ML NEB HHN SCH ×6 (00:04→20:01)
[2017-06-24] MEDS: ACETYLCYSTEINE 100MG/ML 10% VIAL 4ML INH SCH ×3 (00:04→15:46)
[2017-06-24] MEDS: FENTANYL CITRATE/PF 500 MCG in SODIUM CHLORIDE 0.9% 40 ML IV PRN ×4 (01:56→16:27)
[2017-06-24] MEDS: MIDAZOLAM HCL 50 MG in DEXTROSE 5% WATER 40 ML IV PRN ×3 (05:17→19:53)
[2017-06-24] MEDS: PIPERACILLIN/TAZ 3.375G PREMIX 50 ML IV SCH ×2 (05:28→12:44)
[2017-06-24] MEDS: SODIUM CHLORIDE 0.9% INJ 3ML FLUSH IVF SCH ×3 (05:28→21:06)
[2017-06-24] MEDS: BLOOD SUGAR DIAGNOSTIC STRIP TEST SCH ×4 (05:34→23:21)
[2017-06-24] MEDS: INSULIN LISPRO 100 UNITS/ML SUBCUT SCH ×4 (05:34→23:21)
[2017-06-24 06:43] LABS: HEMATOCRIT. 22.6 % (36.0-48.0); HEMOGLOBIN. 7.5 g/dL (12.0-16.0); MEAN CORPUSCULAR HEMOGLOBIN 26.5 pg (28.0-32.0); MEAN PLATELET VOLUME 10.4 fl (7.4-10.4); PLATELET 98 x1000/uL (130-400); RED BLOOD CELL COUNT 2.83 mill/uL (4.2-5.4); RED CELL DISTRIBUTION WIDTH 26.5 % (11.6-14.6)
[2017-06-24 07:02] LABS: CARBON DIOXIDE 27 mEq/L (21-32); CHLORIDE 113 mEq/L (98-107)
[2017-06-24 08:17] LABS: PHOSPHORUS 1.6 mg/dL (2.5-4.9)
[2017-06-24] MEDS: PANTOPRAZOLE SODIUM 40 MG/VIAL IV SCH (08:19)
[2017-06-24 08:48] LABS: BG BASE EXCESS 3.9 mmol/L (-2.0-2.0); BG DEOXYHEMOGLOBIN 1.9 % (0.0-5.0); BG FRACTION INSPIRED OXYGEN 50; BG HCO3 ACT 28.5 mmol/L (22.0-26.0); BG METHEMOGLOBIN 1.2 % (0.0-1.5); BG OXYGEN SATURATION 98.1 % (92.0-98.5); BG OXYHEMOGLOBIN 96.9 % (94.0-97.0); BG PCO2 43.1 mmHg (35.0-45.0); BG PH 7.438 (7.350-7.450); BG PO2 143.8 mmHg (75.0-100.0); BG SAMPLE SITE RIGHT BRACHIAL; BG TIDAL VOLUME(mL) 500 mL; BG VENT MODE VENT - A/C; BG VENT RATE 14 set
[2017-06-24] MEDS: VANCOMYCIN 1 G PREMIX 200 ML IV SCH (09:03)
[2017-06-24] MEDS ORDERED: POTASSIUM PHOS,M-BASIC-D-BASIC 20 MMOL in DEXT 5% WATER 243.3333 ML IV NR (12:00)
[2017-06-24 13:39] LABS: NUCLEATED RED BLOOD CELLS 27 /100 WBC; PLATELET ESTIMATE MARKEDLY DECREASED
[2017-06-24] MEDS: AMPICILLIN 2,000 MG in SODIUM CHLORIDE 0.9% 100 ML IV SCH ×2 (16:15→21:05)
[2017-06-24] MEDS: LEVOFLOXACIN 500MG PREMIX 100 ML IV SCH (19:38)
[2017-06-24] MEDS: FENTANYL CITRATE/PF 1,000 MCG in SODIUM CHLORIDE 0.9% 80 ML IV PRN (21:55)
[2017-06-24] MEDS: LORAZEPAM 2MG/ML CPJ IV PRN (22:14)
[2017-06-25] VITALS (105 sets, daily range): BP systolic 94–137; BP diastolic 44–78
[2017-06-25] MEDS: IPRATROPIUM/ALBUTEROL 0.5-3(2.5)MG/3ML NEB HHN SCH ×5 (01:47→20:04)
[2017-06-25] MEDS: ACETYLCYSTEINE 100MG/ML 10% VIAL 4ML INH SCH ×3 (01:47→16:38)
[2017-06-25] MEDS ORDERED: MIDAZOLAM HCL 50 MG in DEXTROSE 5% WATER 40 ML IV PRN ×4 (02:15)
[2017-06-25] MEDS: AMPICILLIN 2,000 MG in SODIUM CHLORIDE 0.9% 100 ML IV SCH ×4 (03:02→21:01)
[2017-06-25] MEDS: FENTANYL CITRATE/PF 1,000 MCG in SODIUM CHLORIDE 0.9% 80 ML IV PRN ×3 (04:49→22:54)
[2017-06-25] MEDS: BLOOD SUGAR DIAGNOSTIC STRIP TEST SCH ×4 (05:17→23:34)
[2017-06-25] MEDS: INSULIN LISPRO 100 UNITS/ML SUBCUT SCH ×4 (05:17→23:33)
[2017-06-25] MEDS: SODIUM CHLORIDE 0.9% INJ 3ML FLUSH IVF SCH ×3 (05:18→21:01)
[2017-06-25 06:31] LABS: HEMATOCRIT. 25.7 % (36.0-48.0); HEMOGLOBIN. 8.4 g/dL (12.0-16.0); MEAN CORPUSCULAR HEMOGLOBIN 26.9 pg (28.0-32.0); MEAN CORPUSCULAR VOLUME 82.2 fL (81.0-99.0); MEAN PLATELET VOLUME 10.4 fl (7.4-10.4); PLATELET 114 x1000/uL (130-400); RED BLOOD CELL COUNT 3.13 mill/uL (4.2-5.4); RED CELL DISTRIBUTION WIDTH 25.7 % (11.6-14.6)
[2017-06-25 07:00] LABS: CARBON DIOXIDE 25 mEq/L (21-32); CHLORIDE 116 mEq/L (98-107)
[2017-06-25] MEDS: PANTOPRAZOLE SODIUM 40 MG/VIAL IV SCH (08:23)
[2017-06-25] MEDS: MIDAZOLAM HCL 100 MG in DEXT 5% WATER 80 ML IV PRN (08:50)
[2017-06-25 09:04] LABS: BG BASE EXCESS -0.6 mmol/L (-2.0-2.0); BG CARBOXYHEMOGLOBIN 0.5 % (0.5-1.5); BG DEOXYHEMOGLOBIN 4.5 % (0.0-5.0); BG FRACTION INSPIRED OXYGEN 35; BG HCO3 ACT 23.9 mmol/L (22.0-26.0); BG METHEMOGLOBIN 0.3 % (0.0-1.5); BG OXYGEN SATURATION 95.5 % (92.0-98.5); BG OXYHEMOGLOBIN 94.7 % (94.0-97.0); BG PCO2 38.9 mmHg (35.0-45.0); BG PH 7.407 (7.350-7.450); BG PO2 81.9 mmHg (75.0-100.0); BG SAMPLE SITE LEFT RADIAL; BG TIDAL VOLUME(mL) 500 mL; BG TOTAL HEMOGLOBIN 9.2 g/dL (12.0-18.0); BG VENT MODE VENT - A/C; BG VENT RATE 14 set
[2017-06-25] MEDS ORDERED: LIDOCAINE HCL 1% 20ML VIAL (Pyxis) INJ ONE (09:17)
[2017-06-25] MEDS ORDERED: LIDOCAINE HCL 1% 20ML VIAL (Pyxis) INJ INFIL NR (09:30)
[2017-06-25 10:48] LABS: NUCLEATED RED BLOOD CELLS 44 /100 WBC; PLATELET ESTIMATE DECREASED
[2017-06-25] MEDS: ACETAMINOPHEN 650MG/20.3ML UDC GT PRN (13:37)
[2017-06-25] MEDS: LEVOFLOXACIN 500MG PREMIX 100 ML IV SCH (18:56)
[2017-06-25] MEDS: LORAZEPAM 2MG/ML CPJ IV PRN (20:47)
[2017-06-26] VITALS (89 sets, daily range): BP systolic 92–123; BP diastolic 43–74
[2017-06-26] MEDS: ACETYLCYSTEINE 100MG/ML 10% VIAL 4ML INH SCH ×4 (00:35→23:36)
[2017-06-26] MEDS: IPRATROPIUM/ALBUTEROL 0.5-3(2.5)MG/3ML NEB HHN SCH ×7 (00:36→23:36)
[2017-06-26] MEDS: LORAZEPAM 2MG/ML CPJ IV PRN ×3 (01:48→22:17)
[2017-06-26] MEDS: AMPICILLIN 2,000 MG in SODIUM CHLORIDE 0.9% 100 ML IV SCH ×4 (03:28→22:17)
[2017-06-26] MEDS: FENTANYL CITRATE/PF 1,000 MCG in SODIUM CHLORIDE 0.9% 80 ML IV PRN ×3 (04:04→18:49)
[2017-06-26] MEDS: MIDAZOLAM HCL 100 MG in DEXT 5% WATER 80 ML IV PRN (04:05)
[2017-06-26] MEDS: SODIUM CHLORIDE 0.9% INJ 3ML FLUSH IVF SCH ×3 (05:33→22:17)
[2017-06-26] MEDS: INSULIN LISPRO 100 UNITS/ML SUBCUT SCH ×3 (05:34→18:00)
[2017-06-26] MEDS: BLOOD SUGAR DIAGNOSTIC STRIP TEST SCH ×3 (05:34→18:08)
[2017-06-26 06:09] LABS: HEMATOCRIT. 34.2 % (36.0-48.0); HEMOGLOBIN. 10.8 g/dL (12.0-16.0); MEAN CORPUSCULAR HEMOGLOBIN 27.1 pg (28.0-32.0); MEAN CORPUSCULAR VOLUME 85.8 fL (81.0-99.0); MEAN PLATELET VOLUME 10.2 fl (7.4-10.4); PLATELET 144 x1000/uL (130-400); RED BLOOD CELL COUNT 3.98 mill/uL (4.2-5.4); RED CELL DISTRIBUTION WIDTH 27.5 % (11.6-14.6)
[2017-06-26 06:38] LABS: CARBON DIOXIDE 20 mEq/L (21-32); CHLORIDE 118 mEq/L (98-107)
[2017-06-26 06:43] LABS: NUCLEATED RED BLOOD CELLS 31 /100 WBC; PHOSPHORUS 2.8 mg/dL (2.5-4.9); PLATELET ESTIMATE DECREASED
[2017-06-26 08:33] LABS: BG BASE EXCESS -0.3 mmol/L (-2.0-2.0); BG CARBOXYHEMOGLOBIN 0.3 % (0.5-1.5); BG DEOXYHEMOGLOBIN 3.3 % (0.0-5.0); BG FRACTION INSPIRED OXYGEN 35; BG HCO3 ACT 23.7 mmol/L (22.0-26.0); BG METHEMOGLOBIN 0.6 % (0.0-1.5); BG OXYGEN SATURATION 96.7 % (92.0-98.5); BG OXYHEMOGLOBIN 95.8 % (94.0-97.0); BG PH 7.436 (7.350-7.450); BG PO2 88.7 mmHg (75.0-100.0); BG SAMPLE SITE LEFT RADIAL; BG TIDAL VOLUME(mL) 500 mL; BG TOTAL HEMOGLOBIN 10.3 g/dL (12.0-18.0); BG VENT MODE VENT - A/C; BG VENT RATE 14 set
[2017-06-26] MEDS: PANTOPRAZOLE SODIUM 40 MG/VIAL IV SCH (08:48)
[2017-06-26] MEDS: ACETAMINOPHEN 650MG/20.3ML UDC GT PRN (08:48)
[2017-06-26 15:08] LABS: CLARITY URINE CLEAR (CLEAR); COLOR URINE YELLOW (YELLOW); GLUCOSE URINE NEGATIVE (NEGATIVE); KETONES URINE NEGATIVE (NEGATIVE); LEUKOCYTE ESTERASE URINE NEGATIVE (NEGATIVE); NITRITE URINE NEGATIVE (NEGATIVE); OCCULT BLOOD URINE 2+ (NEGATIVE); PROTEIN URINE 1+ (NEGATIVE); SPECIFIC GRAVITY URINE 1.015 (1.005-1.030); UROBILINOGEN URINE 0.2 E.U./dL (0.2-1.0)
[2017-06-26] MEDS: LEVOFLOXACIN 500MG PREMIX 100 ML IV SCH (18:08)
[2017-06-27] VITALS (72 sets, daily range): BP systolic 88–138; BP diastolic 43–67
[2017-06-27] MEDS: BLOOD SUGAR DIAGNOSTIC STRIP TEST SCH ×5 (00:02→23:48)
[2017-06-27] MEDS: ACETAMINOPHEN 650MG/20.3ML UDC GT PRN ×2 (00:22→19:47)
[2017-06-27] MEDS: MIDAZOLAM HCL 100 MG in DEXT 5% WATER 80 ML IV PRN (02:44)
[2017-06-27] MEDS: LORAZEPAM 2MG/ML CPJ IV PRN (02:45)
[2017-06-27] MEDS: FENTANYL CITRATE/PF 1,000 MCG in SODIUM CHLORIDE 0.9% 80 ML IV PRN ×3 (02:45→22:40)
[2017-06-27] MEDS: AMPICILLIN 2,000 MG in SODIUM CHLORIDE 0.9% 100 ML IV SCH ×4 (03:53→21:37)
[2017-06-27] MEDS: IPRATROPIUM/ALBUTEROL 0.5-3(2.5)MG/3ML NEB HHN SCH ×5 (03:58→20:20)
[2017-06-27] MEDS: INSULIN LISPRO 100 UNITS/ML SUBCUT SCH ×5 (06:00→23:49)
[2017-06-27 06:09] LABS: BASOPHILS % 0.6 % (0.0-2.0); EOSINOPHILS % 3.4 % (0.0-5.0); HEMATOCRIT. 27.7 % (36.0-48.0); HEMOGLOBIN. 9.1 g/dL (12.0-16.0); LYMPHOCYTES % 13.1 % (20.0-50.0); MEAN CORPUSCULAR HEMOGLOBIN 26.9 pg (28.0-32.0); MEAN CORPUSCULAR VOLUME 82.2 fL (81.0-99.0); MEAN PLATELET VOLUME 10.7 fl (7.4-10.4); MONOCYTES % 5.9 % (2.0-8.0); PLATELET 214 x1000/uL (130-400); RED BLOOD CELL COUNT 3.37 mill/uL (4.2-5.4)
[2017-06-27] MEDS: SODIUM CHLORIDE 0.9% INJ 3ML FLUSH IVF SCH ×3 (06:34→22:00)
[2017-06-27 08:16] LABS: CARBON DIOXIDE 26 mEq/L (21-32); CHLORIDE 117 mEq/L (98-107); CREATINE KINASE 62 IU/L (26-192)
[2017-06-27] MEDS: ACETYLCYSTEINE 100MG/ML 10% VIAL 4ML INH SCH ×2 (09:04→16:19)
[2017-06-27] MEDS ORDERED: PROPOFOL 200MG/20ML VIAL IV ONE (09:21)
[2017-06-27] MEDS ORDERED: EPHEDRINE SULFATE 50MG/ML VIAL ONE (09:21)
[2017-06-27] MEDS: PANTOPRAZOLE SODIUM 40 MG/VIAL IV SCH (09:54)
[2017-06-27] MEDS: LEVOFLOXACIN 500MG PREMIX 100 ML IV SCH (17:17)
[2017-06-28] VITALS (50 sets, daily range): BP systolic 100–121; BP diastolic 42–76
[2017-06-28] MEDS: LORAZEPAM 2MG/ML CPJ IV PRN ×4 (01:21→20:22)
[2017-06-28] MEDS: IPRATROPIUM/ALBUTEROL 0.5-3(2.5)MG/3ML NEB HHN SCH ×5 (02:05→19:47)
[2017-06-28] MEDS: AMPICILLIN 2,000 MG in SODIUM CHLORIDE 0.9% 100 ML IV SCH ×4 (03:22→22:16)
[2017-06-28] MEDS: MIDAZOLAM HCL 100 MG in DEXT 5% WATER 80 ML IV PRN (03:22)
[2017-06-28] MEDS: SODIUM CHLORIDE 0.9% INJ 3ML FLUSH IVF SCH ×3 (05:10→22:05)
[2017-06-28] MEDS: BLOOD SUGAR DIAGNOSTIC STRIP TEST SCH ×3 (05:10→17:26)
[2017-06-28] MEDS: INSULIN LISPRO 100 UNITS/ML SUBCUT SCH ×3 (05:11→17:26)
[2017-06-28] MEDS: FENTANYL CITRATE/PF 1,000 MCG in SODIUM CHLORIDE 0.9% 80 ML IV PRN ×3 (05:30→20:23)
[2017-06-28 08:07] LABS: BG CARBOXYHEMOGLOBIN 0.3 % (0.5-1.5); BG DEOXYHEMOGLOBIN 2.9 % (0.0-5.0); BG FRACTION INSPIRED OXYGEN 35; BG HCO3 ACT 22.9 mmol/L (22.0-26.0); BG OXYGEN SATURATION 97.1 % (92.0-98.5); BG OXYHEMOGLOBIN 96.8 % (94.0-97.0); BG PCO2 34.7 mmHg (35.0-45.0); BG PH 7.437 (7.350-7.450); BG PO2 100.3 mmHg (75.0-100.0); BG SAMPLE SITE RIGHT RADIAL; BG TIDAL VOLUME(mL) 500 mL; BG TOTAL HEMOGLOBIN 9.8 g/dL (12.0-18.0); BG VENT MODE VENT - A/C; BG VENT RATE 14 set
[2017-06-28] MEDS: PANTOPRAZOLE SODIUM 40 MG/VIAL IV SCH (08:24)
[2017-06-28 11:18] LABS: HEMATOCRIT 28.1 % (36.0-48.0); MEAN CORPUSCULAR HEMOGLOBIN 26.6 pg (28.0-32.0); PLATELET 266 x1000/uL (130-400); RED BLOOD CELL COUNT 3.38 mill/uL (4.2-5.4); RED CELL DISTRIBUTION WIDTH 27.1 % (11.6-14.6)
[2017-06-28 11:34] LABS: CARBON DIOXIDE 26 mEq/L (21-32); CHLORIDE 114 mEq/L (98-107)
[2017-06-28 13:10] LABS: BG CARBOXYHEMOGLOBIN 0.2 % (0.5-1.5); BG FRACTION INSPIRED OXYGEN 35; BG HCO3 ACT 24.2 mmol/L (22.0-26.0); BG METHEMOGLOBIN 0.4 % (0.0-1.5); BG OXYHEMOGLOBIN 95.4 % (94.0-97.0); BG PCO2 42.4 mmHg (35.0-45.0); BG PH 7.375 (7.350-7.450); BG PO2 86.6 mmHg (75.0-100.0); BG PRESSURE SUPPORT 14; BG SAMPLE SITE RIGHT RADIAL; BG TIDAL VOLUME(mL) 500 mL; BG TOTAL HEMOGLOBIN 11.8 g/dL (12.0-18.0); BG VENT MODE VENT - SIMV; BG VENT RATE 10 set
[2017-06-28] MEDS ORDERED: LORAZEPAM 2MG/ML CPJ IV PRN (17:00)
[2017-06-28] MEDS: LEVOFLOXACIN 500MG PREMIX 100 ML IV SCH (18:00)
[2017-06-28] MEDS ORDERED: MORPHINE SULFATE 2 MG/ML CPJ (NOT FOR IM USE) IV PRN (20:00)
[2017-06-28] MEDS: DIPHENHYDRAMINE 50MG/ML VIAL IV PRN (22:05)
[2017-06-29] VITALS (55 sets, daily range): BP systolic 95–125; BP diastolic 34–97
[2017-06-29] MEDS: IPRATROPIUM/ALBUTEROL 0.5-3(2.5)MG/3ML NEB HHN SCH ×4 (00:08→12:24)
[2017-06-29] MEDS: BLOOD SUGAR DIAGNOSTIC STRIP TEST SCH ×4 (00:13→17:15)
[2017-06-29] MEDS: LORAZEPAM 2MG/ML CPJ IV PRN (01:02)
[2017-06-29] MEDS: FENTANYL CITRATE/PF 1,000 MCG in SODIUM CHLORIDE 0.9% 80 ML IV PRN ×2 (02:35→09:45)
[2017-06-29] MEDS: AMPICILLIN 2,000 MG in SODIUM CHLORIDE 0.9% 100 ML IV SCH ×4 (04:30→21:29)
[2017-06-29 05:23] LABS: BASOPHILS % 0.6 % (0.0-2.0); EOSINOPHILS % 2.3 % (0.0-5.0); HEMATOCRIT. 29.3 % (36.0-48.0); HEMOGLOBIN. 9.3 g/dL (12.0-16.0); LYMPHOCYTES % 12.9 % (20.0-50.0); MEAN CORPUSCULAR HEMOGLOBIN 26.3 pg (28.0-32.0); MEAN CORPUSCULAR VOLUME 83.2 fL (81.0-99.0); MEAN PLATELET VOLUME 10.2 fl (7.4-10.4); MONOCYTES % 5.8 % (2.0-8.0); NEUTROPHILS % 78.4 % (40.0-76.0); PLATELET 305 x1000/uL (130-400); RED BLOOD CELL COUNT 3.52 mill/uL (4.2-5.4); RED CELL DISTRIBUTION WIDTH 27.1 % (11.6-14.6)
[2017-06-29 05:37] LABS: CARBON DIOXIDE 24 mEq/L (21-32); CHLORIDE 113 mEq/L (98-107)
[2017-06-29] MEDS: INSULIN LISPRO 100 UNITS/ML SUBCUT SCH ×4 (06:00→17:15)
[2017-06-29] MEDS: DIPHENHYDRAMINE 50MG/ML VIAL IV PRN ×3 (06:00→21:30)
[2017-06-29] MEDS: SODIUM CHLORIDE 0.9% INJ 3ML FLUSH IVF SCH ×3 (06:05→22:00)
[2017-06-29] MEDS: PANTOPRAZOLE SODIUM 40 MG/VIAL IV SCH (08:05)
[2017-06-29 14:10] LABS: BG BASE EXCESS -2.8 mmol/L (-2.0-2.0); BG CARBOXYHEMOGLOBIN 0.3 % (0.5-1.5); BG DEOXYHEMOGLOBIN 3.9 % (0.0-5.0); BG FRACTION INSPIRED OXYGEN 35; BG HCO3 ACT 21.8 mmol/L (22.0-26.0); BG METHEMOGLOBIN 0.2 % (0.0-1.5); BG OXYGEN SATURATION 96.1 % (92.0-98.5); BG OXYHEMOGLOBIN 95.6 % (94.0-97.0); BG PCO2 37.1 mmHg (35.0-45.0); BG PH 7.387 (7.350-7.450); BG PO2 88.3 mmHg (75.0-100.0); BG PRESSURE SUPPORT 10; BG SAMPLE SITE RIGHT RADIAL; BG TIDAL VOLUME(mL) 500 mL; BG TOTAL HEMOGLOBIN 10.5 g/dL (12.0-18.0); BG VENT MODE VENT - SIMV; BG VENT RATE 6 set
[2017-06-29 16:00] LABS: BG BASE EXCESS -0.3 mmol/L (-2.0-2.0); BG DEOXYHEMOGLOBIN 3.2 % (0.0-5.0); BG FRACTION INSPIRED OXYGEN 35; BG METHEMOGLOBIN 0.3 % (0.0-1.5); BG OXYGEN SATURATION 96.8 % (92.0-98.5); BG OXYHEMOGLOBIN 96.5 % (94.0-97.0); BG PCO2 43.3 mmHg (35.0-45.0); BG PH 7.379 (7.350-7.450); BG PRESSURE SUPPORT 8; BG SAMPLE SITE RIGHT RADIAL; BG TOTAL HEMOGLOBIN 10.7 g/dL (12.0-18.0); BG VENT MODE VENT - CPAP
[2017-06-29] MEDS ORDERED: RACEPINEPHRINE 2.25% 0.5ML NEB VIAL HHN NR (16:23)
[2017-06-29] MEDS ORDERED: HYDROCODONE/ACETAMINOPHEN 5/325MG TABLET PO PRN (16:30)
[2017-06-29] MEDS: ACYCLOVIR 400 MG TABLET PO SCH (16:41)
[2017-06-29] MEDS: DOCUSATE SODIUM SUGAR FREE 100MG/10ML UDC NG SCH (16:42)
[2017-06-29 18:01] LABS: BG BASE EXCESS -2.7 mmol/L (-2.0-2.0); BG CARBOXYHEMOGLOBIN 0.3 % (0.5-1.5); BG DEOXYHEMOGLOBIN 6.4 % (0.0-5.0); BG FRACTION INSPIRED OXYGEN 40; BG HCO3 ACT 21.8 mmol/L (22.0-26.0); BG METHEMOGLOBIN 0.2 % (0.0-1.5); BG OXYGEN SATURATION 93.6 % (92.0-98.5); BG OXYHEMOGLOBIN 93.1 % (94.0-97.0); BG PCO2 36.6 mmHg (35.0-45.0); BG PH 7.393 (7.350-7.450); BG PO2 72.1 mmHg (75.0-100.0); BG SAMPLE SITE RIGHT RADIAL; BG TOTAL HEMOGLOBIN 10.8 g/dL (12.0-18.0); BG VENT MODE NASAL CANNULA
[2017-06-29] MEDS: LEVOFLOXACIN 500MG PREMIX 100 ML IV SCH (18:05)
[2017-06-29] MEDS: ALBUTEROL (0.083%) 2.5MG/3ML NEB HHN SCH (19:57)
[2017-06-29] MEDS ORDERED: LACTULOSE 20G/30ML UDC PO PRN (21:00)
[2017-06-29] MEDS: HYDROCODONE/ACETAMINOPHEN 10/325MG TABLET PO PRN (21:29)
[2017-06-30] VITALS (22 sets, daily range): BP systolic 87–121; BP diastolic 46–79
[2017-06-30] MEDS: ACETAMINOPHEN 650MG/20.3ML UDC GT PRN (00:04)
[2017-06-30] MEDS: ALBUTEROL (0.083%) 2.5MG/3ML NEB HHN SCH ×7 (00:20→20:45)
[2017-06-30] MEDS: DIPHENHYDRAMINE 50MG/ML VIAL IV PRN ×5 (01:19→22:34)
[2017-06-30] MEDS: AMPICILLIN 2,000 MG in SODIUM CHLORIDE 0.9% 100 ML IV SCH ×4 (03:49→18:08)
[2017-06-30] MEDS: SODIUM CHLORIDE 0.9% INJ 3ML FLUSH IVF SCH ×3 (04:25→22:16)
[2017-06-30 06:30] LABS: BASOPHILS % 0.7 % (0.0-2.0); EOSINOPHILS % 2.4 % (0.0-5.0); HEMATOCRIT. 28.7 % (36.0-48.0); HEMOGLOBIN. 9.4 g/dL (12.0-16.0); LYMPHOCYTES % 17.6 % (20.0-50.0); MEAN CORPUSCULAR HEMOGLOBIN 27.3 pg (28.0-32.0); MEAN CORPUSCULAR VOLUME 83.8 fL (81.0-99.0); MEAN PLATELET VOLUME 10.6 fl (7.4-10.4); MONOCYTES % 9.3 % (2.0-8.0); PLATELET 325 x1000/uL (130-400); RED BLOOD CELL COUNT 3.43 mill/uL (4.2-5.4); RED CELL DISTRIBUTION WIDTH 27.1 % (11.6-14.6)
[2017-06-30] MEDS: HYDROCODONE/ACETAMINOPHEN 10/325MG TABLET PO PRN ×3 (07:02→16:38)
[2017-06-30] MEDS: PANTOPRAZOLE SODIUM 40 MG/VIAL IV SCH (08:39)
[2017-06-30] MEDS: ACYCLOVIR 400 MG TABLET PO SCH ×3 (08:39→16:39)
[2017-06-30] MEDS: DOCUSATE SODIUM SUGAR FREE 100MG/10ML UDC NG SCH ×2 (08:54→16:32)
[2017-06-30 12:06] LABS: AMYLASE 234 IU/L (25-115)
[2017-06-30] MEDS: LEVOFLOXACIN 500MG PREMIX 100 ML IV SCH (22:15)
[2017-07-01] VITALS: BP 104/52
[2017-07-01] MEDS: ALBUTEROL (0.083%) 2.5MG/3ML NEB HHN SCH ×5 (00:38→22:48)
[2017-07-01] MEDS: AMPICILLIN 2,000 MG in SODIUM CHLORIDE 0.9% 100 ML IV SCH ×4 (03:40→22:44)
[2017-07-01] MEDS: DIPHENHYDRAMINE 50MG/ML VIAL IV PRN ×3 (03:48→23:54)
[2017-07-01 04:00] VITALS: BP 102/55
[2017-07-01] MEDS: SODIUM CHLORIDE 0.9% INJ 3ML FLUSH IVF SCH ×3 (05:31→22:45)
[2017-07-01 08:00] VITALS: BP 111/52
[2017-07-01] MEDS: PANTOPRAZOLE SODIUM 40 MG/VIAL IV SCH (09:25)
[2017-07-01] MEDS: DOCUSATE SODIUM SUGAR FREE 100MG/10ML UDC NG SCH ×2 (09:25→17:08)
[2017-07-01] MEDS: ACYCLOVIR 400 MG TABLET PO SCH ×3 (09:26→17:08)
[2017-07-01 12:30] VITALS: BP 111/65
[2017-07-01] MEDS: LEVOFLOXACIN 500MG TABLET PO SCH (14:05)
[2017-07-01 16:30] VITALS: BP 103/55
[2017-07-01] MEDS ORDERED: GUAIFENESIN 200MG/10ML SUGAR FREE UDC PO PRN (17:30)
[2017-07-01] MEDS ORDERED: LEVO500T2 PO (19:48)
[2017-07-01] MEDS ORDERED: ALBU05 IH (19:51)
[2017-07-01] MEDS ORDERED: PROM25TA13 PO (19:51)
[2017-07-01 20:00] VITALS: BP 110/64
[2017-07-01 22:32] LABS: CARBON DIOXIDE 20 mEq/L (21-32); CHLORIDE 107 mEq/L (98-107)
[2017-07-01 22:40] LABS: EOSINOPHILS % 2.1 % (0.0-5.0); HEMATOCRIT. 33.7 % (36.0-48.0); HEMOGLOBIN. 10.8 g/dL (12.0-16.0); LYMPHOCYTES % 23.2 % (20.0-50.0); MEAN CORPUSCULAR HEMOGLOBIN 27.1 pg (28.0-32.0); MEAN CORPUSCULAR VOLUME 84.1 fL (81.0-99.0); MEAN PLATELET VOLUME 10.1 fl (7.4-10.4); MONOCYTES % 10.9 % (2.0-8.0); NEUTROPHILS % 62.8 % (40.0-76.0); PLATELET 402 x1000/uL (130-400); RED CELL DISTRIBUTION WIDTH 26.2 % (11.6-14.6)
[2017-07-01 23:11] LABS: PLATELET ESTIMATE SLIGHTLY INCREASED
[2017-07-02] VITALS: BP 107/60
[2017-07-02] MEDS: ALBUTEROL (0.083%) 2.5MG/3ML NEB HHN SCH ×4 (01:54→13:47)
[2017-07-02 04:00] VITALS: BP 105/54
[2017-07-02] MEDS: DIPHENHYDRAMINE 50MG/ML VIAL IV PRN (04:22)
[2017-07-02] MEDS: AMPICILLIN 2,000 MG in SODIUM CHLORIDE 0.9% 100 ML IV SCH ×2 (04:22→10:02)
[2017-07-02] MEDS: SODIUM CHLORIDE 0.9% INJ 3ML FLUSH IVF SCH (06:44)
[2017-07-02 08:18] VITALS: BP 102/43
[2017-07-02] MEDS ORDERED: FAMOTIDINE 20MG/2ML VIAL IV SCH (09:00)
[2017-07-02] MEDS: DOCUSATE SODIUM SUGAR FREE 100MG/10ML UDC NG SCH (09:00)
[2017-07-02] MEDS: ACYCLOVIR 400 MG TABLET PO SCH (09:41)
[2017-07-02] MEDS: HYDROCODONE/ACETAMINOPHEN 10/325MG TABLET PO PRN (09:59)
[2017-07-02] MEDS: LEVOFLOXACIN 500MG TABLET PO SCH (11:14)
[2017-07-02] MEDS ORDERED: GADOBENATE DIMEGLUMINE 529 MG/ML 10ML IV ONE (11:31)
[2017-07-02 11:47] VITALS: BP 97/55
[2017-07-02 16:16] VITALS: BP 104/57
[2017-07-02 16:37] VITALS: BP 100/75
== END 2017-07-02 16:55 | disposition home or self-care (01) | DRG 720 ==
LOC: ER 17:16 → EDBEDREQSVC 18:21 → CVICU 18:52 → EDBEDREQTM 18:56 → EDBEDREQ 18:56 → ENRESERV 19:38 → 5WST 06-30 18:30
PROVIDERS: ADMIT Family Medicine; ATTEND Family Medicine
PROC: 5A1955Z Respiratory Ventilation, Greater than 96 Consecutive Hours (ICD-10-PCS; principal; 2017-06-21)
PROC: 0BH17EZ Insertion of Endotracheal Airway into Trachea, Via Natural or Artificial Opening (ICD-10-PCS; 2017-06-21)
PROC: 30233L1 Transfusion of Nonautologous Fresh Plasma into Peripheral Vein, Percutaneous Approach (ICD-10-PCS; 2017-06-21)
PROC: 30233N1 Transfusion of Nonautologous Red Blood Cells into Peripheral Vein, Percutaneous Approach (ICD-10-PCS; 2017-06-21)
PROC: 30233K1 Transfusion of Nonautologous Frozen Plasma into Peripheral Vein, Percutaneous Approach (ICD-10-PCS; 2017-06-21)
PROC: 05H933Z Insertion of Infusion Device into Right Brachial Vein, Percutaneous Approach (ICD-10-PCS; 2017-06-22)
PROC: B54MZZA Ultrasonography of Right Upper Extremity Veins, Guidance (ICD-10-PCS; 2017-06-22)
PROC: 0B9F8ZX Drainage of Right Lower Lung Lobe, Via Natural or Artificial Opening Endoscopic, Diagnostic (ICD-10-PCS; 2017-06-25)
PROC: 0B9C8ZX Drainage of Right Upper Lung Lobe, Via Natural or Artificial Opening Endoscopic, Diagnostic (ICD-10-PCS; 2017-06-25)
PROC: 0B9D8ZX Drainage of Right Middle Lung Lobe, Via Natural or Artificial Opening Endoscopic, Diagnostic (ICD-10-PCS; 2017-06-25)
PROC: 07DQ3ZX Extraction of Sternum Bone Marrow, Percutaneous Approach, Diagnostic (ICD-10-PCS; 2017-06-27)
DX: A41.3 Sepsis due to Hemophilus influenzae (principal); J96.00 Acute respiratory failure, unspecified whether with hypoxia or hypercapnia; D65 Disseminated intravascular coagulation [defibrination syndrome]; K72.00 Acute and subacute hepatic failure without coma; R65.21 Severe sepsis with septic shock; D57.01 Hb-SS disease with acute chest syndrome; K85.90 Acute pancreatitis without necrosis or infection, unspecified; J14 Pneumonia due to Hemophilus influenzae; E83.42 Hypomagnesemia; D62 Acute posthemorrhagic anemia; J11.08 Influenza due to unidentified influenza virus with specified pneumonia; E87.0 Hyperosmolality and hypernatremia; E87.6 Hypokalemia; E87.4 Mixed disorder of acid-base balance; B96.89 Other specified bacterial agents as the cause of diseases classified elsewhere; D63.8 Anemia in other chronic diseases classified elsewhere; D73.5 Infarction of spleen; E83.39 Other disorders of phosphorus metabolism; E87.70 Fluid overload, unspecified; F12.10 Cannabis abuse, uncomplicated; F17.210 Nicotine dependence, cigarettes, uncomplicated; K27.5 Chronic or unspecified peptic ulcer, site unspecified, with perforation; K59.00 Constipation, unspecified; N17.9 Acute kidney failure, unspecified; N70.11 Chronic salpingitis; N83.202 Unspecified ovarian cyst, left side; N94.89 Other specified conditions associated with female genital organs and menstrual cycle; Z87.11 Personal history of peptic ulcer disease; Z87.440 Personal history of urinary (tract) infections; Z22.322 Carrier or suspected carrier of Methicillin resistant Staphylococcus aureus; Z90.49 Acquired absence of other specified parts of digestive tract; Z79.899 Other long term (current) drug therapy; Z88.5 Allergy status to narcotic agent; Z88.8 Allergy status to other drugs, medicaments and biological substances; I50.9 Heart failure, unspecified; N39.0 Urinary tract infection, site not specified
CPT/HCPCS: 31500; 36415; 36556; 36569; 36600; 38220; 71010; 72197; 74000; 76700; 76830; 76856; 76937; 78580; 80048; 80053; 80061; 80076; 80202; 80305; 81001; 82150; 82248; 82270; 82375; 82550; 82553; 82607; 82728; 82746; 82805; 82962; 83010; 83036; 83540; 83550; 83605; 83615; 83690; 83735; 83880; 84100; 84439; 84443; 84478; 84484; 84703; 85025; 85027; 85044; 85060; 85097; 85362; 85379; 85384; 85610; 86705; 86709; 86803; 86850; 86900; 86920; 86927; 87040; 87070; 87077; 87086; 87186; 87340; 87493; 87804; 88108; 88312; 88313; 92610; 93005; 93306; 93970; 94002; 94003; 94640; 94664; 96365; 96367; 96375; 97116; 97162; 99291; A4216; A9577; C1725; C9113; J0171; J0290; J0330; J0610; J1200; J1815; J1940; J1956; J2060; J2250; J2370; J2543; J2704; J2930; J3010; J3370; J3475; J3480; J3490; J7030; J7040; J7050; J7060; J7070; J7608; J7611; J7620; P9016; P9017; A4315

== ENCOUNTER 2017-07-15 21:33 | Emergency (ER) | payer MEDICAID, OTHER ==
[~2017-07-15] VITALS: Ht 167.6 cm; Wt 56.0 kg
[~2017-07-15 21:33] MED LIST changes: +ALBU05 IH; +LEVO500T2 PO; -NITR-87 PO; +PROM25TA13 PO
[2017-07-16] MEDS ORDERED: SODIUM CHLORIDE 0.9% 1000ML BAG (SEPSIS BOLUS) IV ONE (00:30)
[2017-07-16] MEDS ORDERED: FENTANYL CITRATE/PF 50MCG/ML 2ML VIAL IV ONE (00:30)
[2017-07-16] MEDS ORDERED: ASPIRIN 81MG TABLET PO ONE (00:30)
[2017-07-16 03:07] VITALS: BP 106/60
[2017-07-16 03:33] LABS: CLARITY URINE CLEAR (CLEAR); COLOR URINE YELLOW (YELLOW); GLUCOSE URINE NEGATIVE (NEGATIVE); KETONES URINE NEGATIVE (NEGATIVE); LEUKOCYTE ESTERASE URINE 2+ (NEGATIVE); NITRITE URINE NEGATIVE (NEGATIVE); OCCULT BLOOD URINE NEGATIVE (NEGATIVE); PROTEIN URINE NEGATIVE (NEGATIVE); SPECIFIC GRAVITY URINE 1.018 (1.005-1.030)
[2017-07-16] MEDS ORDERED: LEVOFLOXACIN 750MG PREMIX 150 ML IV SCH (04:00)
[2017-07-16 04:14] LABS: *AMPHETAMINES SCREEN URINE NEGATIVE (NEGATIVE); *BARBITURATES SCREEN URINE NEGATIVE (NEGATIVE); *BENZODIAZEPINES SCREEN URINE NEGATIVE (NEGATIVE); *COCAINE SCREEN URINE NEGATIVE (NEGATIVE); METHADONE URINE SCREEN NEGATIVE (NEGATIVE); OPIATES URINE SCREEN NEGATIVE (NEGATIVE); PHENCYCLIDINE URINE SCREEN NEGATIVE (NEGATIVE)
[2017-07-16 04:38] LABS: CANNABINOID URINE SCREEN PRESUMTIVE POSITIVE (NEGATIVE)
== END 2017-07-16 05:12 | disposition home or self-care (01) ==
LOC: ER 22:40
DX: D57.80 Other sickle-cell disorders without crisis (principal); N39.0 Urinary tract infection, site not specified; F12.10 Cannabis abuse, uncomplicated; R20.0 Anesthesia of skin; M79.672 Pain in left foot; Z87.01 Personal history of pneumonia (recurrent); Z90.49 Acquired absence of other specified parts of digestive tract; Z88.6 Allergy status to analgesic agent; Z88.8 Allergy status to other drugs, medicaments and biological substances
CPT/HCPCS: 71010; 80305; 81001; 81025; 93005; 96361; 96365; 96375; 99285; J1956; J3010; J7030; Z7610

== ENCOUNTER 2017-10-01 13:33 | Emergency (ER) | payer OTHER | END 2017-10-01 16:32 | disposition left against medical advice (07) | LOC: ER 13:33 | DX: R07.9 Chest pain, unspecified (principal); Z53.21 Procedure and treatment not carried out due to patient leaving prior to being seen by health care provider ==

== ENCOUNTER 2017-12-30 23:31 | Emergency (ER) | payer MEDICAID, OTHER ==
[~2017-12-30] VITALS: Ht 167.6 cm; Wt 59.0 kg
[2017-12-31] MEDS ORDERED: SODIUM CHLORIDE 0.9% 1,000 ML IV ONE (00:43)
[2017-12-31 01:31] LABS: HEMATOCRIT. 28.4 % (36.0-48.0); HEMOGLOBIN. 9.1 g/dL (12.0-16.0); MEAN CORPUSCULAR HEMOGLOBIN 23.5 pg (28.0-32.0); MEAN CORPUSCULAR VOLUME 73.6 fL (81.0-99.0); MEAN PLATELET VOLUME 9.5 fl (7.4-10.4); PLATELET 339 x1000/uL (130-400); RED BLOOD CELL COUNT 3.87 mill/uL (4.2-5.4); RED CELL DISTRIBUTION WIDTH 20.7 % (11.6-14.6)
[2017-12-31 01:33] LABS: CHLORIDE 110 mEq/L (98-107)
[2017-12-31 01:40] LABS: D-DIMER 1.33 mg/L FEU (<0.50); PARTIAL THROMBOPLASTIN TIME 21.7 sec (23.4-31.0); PROTHROMBIN TIME 10.7 sec (9.4-11.6)
[2017-12-31 01:49] LABS: NUCLEATED RED BLOOD CELLS 19 /100 WBC; PLATELET ESTIMATE NORMAL
[2017-12-31] MEDS ORDERED: MORPHINE SULFATE 4 MG/ML CPJ (NOT FOR IM USE) IV SCH (03:22)
[2017-12-31] MEDS ORDERED: ONDANSETRON HCL 4MG/2ML VIAL IV SCH (03:23)
[2017-12-31] MEDS ORDERED: DIPHENHYDRAMINE 25MG CAPSULE PO ONE (03:30)
[2017-12-31] MEDS ORDERED: MORPHINE SULFATE 4 MG/ML CPJ (NOT FOR IM USE) IV ONE (05:30)
[2017-12-31 06:33] VITALS: BP 135/75
== END 2017-12-31 06:35 | disposition home or self-care (01) ==
LOC: ER 23:31
DX: D57.00 Hb-SS disease with crisis, unspecified (principal); F17.200 Nicotine dependence, unspecified, uncomplicated; R07.89 Other chest pain; Z90.49 Acquired absence of other specified parts of digestive tract; Z88.6 Allergy status to analgesic agent; Z98.890 Other specified postprocedural states
CPT/HCPCS: 36415; 71045; 78582; 80053; 81025; 83605; 83880; 84484; 85025; 85044; 85379; 85610; 85730; 87040; 87804; 93005; 96361; 96374; 96375; 96376; 99285; A9540; A9558; J2270; J2405; Q0163

== ENCOUNTER 2018-02-15 03:49 | Inpatient (IN) | payer MEDICAID ==
[2018-02-15] VITALS (11 sets, daily range): BP systolic 125–134; BP diastolic 65–79
[~2018-02-15] VITALS: Ht 167.6 cm; Wt 63.5 kg
[2018-02-15] MEDS ORDERED: SODIUM CHLORIDE 0.9% 1,000 ML IV ONE (06:01)
[2018-02-15] MEDS ORDERED: ONDANSETRON HCL 4MG/2ML VIAL IM ONE (06:15)
[2018-02-15] MEDS ORDERED: DIPHENHYDRAMINE 50MG/ML VIAL IM ONE (06:15)
[2018-02-15] MEDS ORDERED: MORPHINE SULFATE 10 MG/ML CPJ IM ONE ×2 (06:15→08:15)
[2018-02-15 06:29] LABS: MEAN CORPUSCULAR HEMOGLOBIN 23.5 pg (28.0-32.0); MEAN CORPUSCULAR VOLUME 71.3 fL (81.0-99.0); MEAN PLATELET VOLUME 9.2 fl (7.4-10.4); PLATELET 167 x1000/uL (130-400); RED CELL DISTRIBUTION WIDTH 23.5 % (11.6-14.6)
[2018-02-15 06:31] LABS: HEMATOCRIT. 19.2 % (36.0-48.0); HEMOGLOBIN. 6.3 g/dL (12.0-16.0)
[2018-02-15 06:35] LABS: CHLORIDE 111 mEq/L (98-107)
[2018-02-15 06:36] LABS: D-DIMER 0.83 mg/L FEU (<0.50); INR 1.1; PROTHROMBIN TIME 11.5 sec (9.4-11.6)
[2018-02-15 06:40] LABS: ETHANOL BLOOD < 10 mg/dL
[2018-02-15 06:41] LABS: HCG SCREEN NEGATIVE
[2018-02-15 06:44] LABS: CREATINE KINASE 77 IU/L (26-192)
[2018-02-15] MEDS ORDERED: KETOROLAC 30MG/ML VIAL IM ONE (07:00)
[2018-02-15 07:38] LABS: NUCLEATED RED BLOOD CELLS 60 /100 WBC; PLATELET ESTIMATE NORMAL
[2018-02-15] MEDS ORDERED: GUAIFENESIN 200MG/10ML SUGAR FREE UDC PO PRN (08:00)
[2018-02-15] MEDS ORDERED: ONDANSETRON HCL 4MG/2ML VIAL IV PRN (08:00)
[2018-02-15] MEDS ORDERED: HYDROCODONE/ACETAMINOPHEN 5/325MG TABLET PO PRN (08:00)
[2018-02-15] MEDS ORDERED: ACETAMINOPHEN 325MG TABLET PO PRN (08:00)
[2018-02-15] MEDS ORDERED: CLONIDINE 0.1MG TABLET PO PRN (08:00)
[2018-02-15] MEDS ORDERED: MAGNESIUM/ALUMINUM HYDROXIDE/SIMETHICONE 30ML UDC PO PRN (08:00)
[2018-02-15] MEDS ORDERED: ONDANSETRON 4MG ODT PO ONE (08:15)
[2018-02-15] MEDS ORDERED: DOCUSATE SODIUM 100MG CAPSULE PO PRN (10:30)
[2018-02-15] MEDS: HYDROXYUREA 500MG CAPSULE PO SCH ×2 (10:40→17:00)
[2018-02-15] MEDS: FOLIC ACID 1MG TABLET PO SCH (10:40)
[2018-02-15] MEDS: DIPHENHYDRAMINE 50MG/ML VIAL IV PRN ×3 (10:46→21:39)
[2018-02-15] MEDS: HYDROMORPHONE HCL/PF 2MG/ML CPJ IV PRN ×4 (12:14→23:12)
[2018-02-15] MEDS: SODIUM CHLORIDE 0.9% 1,000 ML IV SCH ×2 (14:54→18:00)
[2018-02-15] MEDS ORDERED: HYDROMORPHONE HCL/PF 2MG/ML CPJ IV PRN (16:30)
[2018-02-15 23:27] LABS: HEMATOCRIT. 21.5 % (36.0-48.0); HEMOGLOBIN. 7.5 g/dL (12.0-16.0); MEAN CORPUSCULAR HEMOGLOBIN 24.7 pg (28.0-32.0); MEAN CORPUSCULAR VOLUME 71.3 fL (81.0-99.0); MEAN PLATELET VOLUME 9.2 fl (7.4-10.4); PLATELET 169 x1000/uL (130-400); RED BLOOD CELL COUNT 3.02 mill/uL (4.2-5.4); RED CELL DISTRIBUTION WIDTH 25.1 % (11.6-14.6)
[2018-02-16] VITALS (10 sets, daily range): BP systolic 109–138; BP diastolic 56–75
[2018-02-16 02:08] LABS: NUCLEATED RED BLOOD CELLS 77 /100 WBC
[2018-02-16 02:09] LABS: PLATELET ESTIMATE NORMAL
[2018-02-16] MEDS: SODIUM CHLORIDE 0.9% 1,000 ML IV SCH ×2 (03:00→12:18)
[2018-02-16] MEDS: HYDROMORPHONE HCL/PF 2MG/ML CPJ IV PRN ×6 (03:01→20:29)
[2018-02-16] MEDS: DIPHENHYDRAMINE 50MG/ML VIAL IV PRN ×2 (04:18→08:35)
[2018-02-16 06:41] LABS: BASOPHILS % 0.6 % (0.0-2.0); EOSINOPHILS % 0.5 % (0.0-5.0); HEMATOCRIT. 22.3 % (36.0-48.0); HEMOGLOBIN. 7.3 g/dL (12.0-16.0); LYMPHOCYTES % 16.1 % (20.0-50.0); MEAN CORPUSCULAR HEMOGLOBIN 24.1 pg (28.0-32.0); MEAN CORPUSCULAR VOLUME 73.5 fL (81.0-99.0); MEAN PLATELET VOLUME 9.1 fl (7.4-10.4); MONOCYTES % 5.8 % (2.0-8.0); PLATELET 91 x1000/uL (130-400); RED BLOOD CELL COUNT 3.03 mill/uL (4.2-5.4); RED CELL DISTRIBUTION WIDTH 26.3 % (11.6-14.6)
[2018-02-16 07:10] LABS: CHLORIDE 110 mEq/L (98-107)
[2018-02-16] MEDS: HYDROXYUREA 500MG CAPSULE PO SCH ×2 (08:38→17:00)
[2018-02-16] MEDS: FOLIC ACID 1MG TABLET PO SCH (08:38)
[2018-02-16] MEDS ORDERED: KETOROLAC 15MG/ML VIAL IV PRN (10:00)
[2018-02-16] MEDS ORDERED: KETOROLAC 10MG TABLET PO PRN (10:00)
[2018-02-16 13:14] LABS: AMMONIA 34 uMol/L (<32)
[2018-02-16 13:31] LABS: FOLIC ACID (FOLATE) SERUM 6.4 ng/mL (>5.38)
[2018-02-16] MEDS ORDERED: VANCOMYCIN 1250MG in DEXTROSE 5% WATER 250ML IV NR (14:00)
[2018-02-16] MEDS ORDERED: PIPERACILLIN/TAZ 2.25G PREMIX 50 ML IV SCH (14:00)
[2018-02-16 18:08] LABS: CLARITY URINE CLEAR (CLEAR); COLOR URINE YELLOW (YELLOW); KETONES URINE TRACE (NEGATIVE); LEUKOCYTE ESTERASE URINE NEGATIVE (NEGATIVE); NITRITE URINE NEGATIVE (NEGATIVE); OCCULT BLOOD URINE 2+ (NEGATIVE); PROTEIN URINE TRACE (NEGATIVE); SPECIFIC GRAVITY URINE 1.013 (1.005-1.030)
[2018-02-16] MEDS ORDERED: VANCOMYCIN 1 G PREMIX 200 ML IV SCH (22:00)
[2018-02-16] MEDS: PIPERACILLIN/TAZ 3.375G PREMIX 50 ML IV SCH (22:15)
[2018-02-16] MEDS: KETOROLAC 10MG TABLET PO PRN (22:15)
[2018-02-17] VITALS (7 sets, daily range): BP systolic 109–122; BP diastolic 55–68
[2018-02-17] MEDS: HYDROMORPHONE HCL/PF 2MG/ML CPJ IV PRN ×6 (00:41→21:38)
[2018-02-17] MEDS: SODIUM CHLORIDE 0.9% 1,000 ML IV SCH (00:42)
[2018-02-17] MEDS: VANCOMYCIN 1 G PREMIX 200 ML IV SCH ×3 (00:45→16:32)
[2018-02-17] MEDS: KETOROLAC 10MG TABLET PO PRN (06:15)
[2018-02-17] MEDS: PIPERACILLIN/TAZ 3.375G PREMIX 50 ML IV SCH ×3 (06:15→21:38)
[2018-02-17] MEDS: HYDROXYUREA 500MG CAPSULE PO SCH ×2 (09:00→17:00)
[2018-02-17] MEDS: FOLIC ACID 1MG TABLET PO SCH (09:04)
[2018-02-17] MEDS: DIPHENHYDRAMINE 50MG/ML VIAL IV PRN ×2 (12:03→17:28)
[2018-02-17] MEDS: LACTULOSE 20G/30ML UDC PO SCH ×2 (13:50→21:42)
[2018-02-17] MEDS ORDERED: HYDROMORPHONE HCL/PF 2MG/ML CPJ IV PRN ×3 (13:51→16:15)
[2018-02-17] MEDS: SODIUM CHLORIDE 0.45% 1,000 ML IV SCH ×2 (13:55→23:30)
[2018-02-17] MEDS ORDERED: LORAZEPAM 0.5MG TABLET PO PRN (17:15)
[2018-02-17] MEDS ORDERED: SULFAMETHOXAZOLE/TRIMETHOPRIM 400/80MG TAB PO SCH (21:00)
[2018-02-18] VITALS (7 sets, daily range): BP systolic 101–116; BP diastolic 53–65
[2018-02-18 01:39] LABS: CREATINE KINASE 163 IU/L (26-192)
[2018-02-18 01:40] LABS: CREATINE KINASE MB FRACTION < 0.5 ng/mL (0.5-3.6)
[2018-02-18] MEDS: VANCOMYCIN 1 G PREMIX 200 ML IV SCH (02:45)
[2018-02-18] MEDS: HYDROMORPHONE HCL/PF 2MG/ML CPJ IV PRN ×2 (02:45→09:08)
[2018-02-18] MEDS: DIPHENHYDRAMINE 50MG/ML VIAL IV PRN ×3 (05:15→17:53)
[2018-02-18] MEDS: PIPERACILLIN/TAZ 3.375G PREMIX 50 ML IV SCH ×2 (05:15→14:52)
[2018-02-18] MEDS: LACTULOSE 20G/30ML UDC PO SCH ×2 (05:16→14:52)
[2018-02-18] MEDS: HYDROXYUREA 500MG CAPSULE PO SCH ×2 (09:00→17:00)
[2018-02-18 09:10] LABS: FOLATE HEMATOCRIT 22.3 % (34.0-46.6)
[2018-02-18] MEDS: FOLIC ACID 1MG TABLET PO SCH (09:20)
[2018-02-18] MEDS: SODIUM CHLORIDE 0.45% 1,000 ML IV SCH (12:43)
[2018-02-18] MEDS: KETOROLAC 10MG TABLET PO PRN (13:02)
[2018-02-18 13:07] LABS: FOLATE HEMOLYSATE 171.4 ng/mL (Not Estab.); FOLATE RBC 769 ng/mL (>498)
[2018-02-18 13:25] LABS: HEMATOCRIT. 22.3 % (36.0-48.0); HEMOGLOBIN. 7.5 g/dL (12.0-16.0); MEAN CORPUSCULAR HEMOGLOBIN 24.7 pg (28.0-32.0); MEAN PLATELET VOLUME 9.4 fl (7.4-10.4); PLATELET 200 x1000/uL (130-400); RED BLOOD CELL COUNT 3.02 mill/uL (4.2-5.4); RED CELL DISTRIBUTION WIDTH 25.8 % (11.6-14.6)
[2018-02-18 13:44] LABS: CHLORIDE 110 mEq/L (98-107)
[2018-02-18 13:49] LABS: PHOSPHORUS 3.6 mg/dL (2.5-4.9)
[2018-02-18 13:50] LABS: NUCLEATED RED BLOOD CELLS 270 /100 WBC
[2018-02-18 13:51] LABS: PLATELET ESTIMATE NORMAL
[2018-02-18] MEDS ORDERED: MORPHINE SULFATE 2 MG/ML CPJ (NOT FOR IM USE) IV PRN (14:30)
[2018-02-18] MEDS ORDERED: HYDROMORPHONE HCL 2MG TABLET PO PRN (14:30)
[2018-02-18] MEDS ORDERED: MORPHINE SULFATE 4 MG/ML CPJ (NOT FOR IM USE) IV PRN (16:24)
[2018-02-18] MEDS ORDERED: HYDR500C PO (18:16)
[2018-02-18] MEDS ORDERED: FOLI-43 PO (18:16)
== END 2018-02-18 20:41 | disposition home or self-care (01) | DRG 720 ==
LOC: ER 03:49 → 6WST 07:07 → EDBEDREQTM 07:12 → EDBEDREQ 07:12
PROVIDERS: ADMIT Internal Medicine; ATTEND Internal Medicine
PROC: B51M1ZA Fluoroscopy of Right Upper Extremity Veins using Low Osmolar Contrast, Guidance (ICD-10-PCS; principal; 2018-02-15)
PROC: 05H733Z Insertion of Infusion Device into Right Axillary Vein, Percutaneous Approach (ICD-10-PCS; 2018-02-15)
PROC: B54MZZA Ultrasonography of Right Upper Extremity Veins, Guidance (ICD-10-PCS; 2018-02-15)
PROC: 30233N1 Transfusion of Nonautologous Red Blood Cells into Peripheral Vein, Percutaneous Approach (ICD-10-PCS; 2018-02-15)
DX: A41.9 Sepsis, unspecified organism (principal); D57.00 Hb-SS disease with crisis, unspecified; I11.9 Hypertensive heart disease without heart failure; E86.0 Dehydration; F17.200 Nicotine dependence, unspecified, uncomplicated; Z86.718 Personal history of other venous thrombosis and embolism; Z88.1 Allergy status to other antibiotic agents; Z79.51 Long term (current) use of inhaled steroids; Z79.2 Long term (current) use of antibiotics; Z79.899 Other long term (current) drug therapy; Z90.49 Acquired absence of other specified parts of digestive tract
CPT/HCPCS: 36415; 36569; 71045; 76700; 76937; 77001; 80048; 80053; 80202; 81003; 82140; 82550; 82553; 82607; 82746; 82747; 83615; 83690; 83735; 83880; 84100; 84145; 84443; 84484; 84703; 85014; 85025; 85044; 85379; 85610; 86850; 86900; 86920; 87040; 87086; 93005; 93970; 96372; 99285; C1725; G0482; J1170; J1200; J1885; J2270; J2405; J2543; J3370; J7030; J7040; J7050; J7060; P9016; Q0162

== ENCOUNTER 2018-09-26 18:48 | Emergency (ER) | payer MEDICAID ==
[~2018-09-26] VITALS: Ht 167.6 cm; Wt 60.0 kg
[~2018-09-26 18:48] MED LIST changes: +HYDR500C PO; -LEVO500T2 PO
[2018-09-26 19:00] VITALS: BP 117/54
== END 2018-09-26 21:00 | disposition left against medical advice (07) ==
LOC: ER 18:48
DX: R07.89 Other chest pain (principal); Z53.21 Procedure and treatment not carried out due to patient leaving prior to being seen by health care provider
CPT/HCPCS: 93005

== ENCOUNTER 2018-10-05 00:20 | Emergency (ER) | payer MEDICAID, OTHER ==
[~2018-10-05] VITALS: Ht 167.6 cm; Wt 60.0 kg
[2018-10-05] MEDS ORDERED: HYDROMORPHONE HCL/PF 2MG/ML CPJ IV ONE ×2 (05:15→07:00)
[2018-10-05] MEDS ORDERED: DIPHENHYDRAMINE 25MG CAPSULE PO ONE (05:15)
[2018-10-05 05:56] LABS: HEMATOCRIT. 22.8 % (36.0-48.0); HEMOGLOBIN. 7.1 g/dL (12.0-16.0); MEAN CORPUSCULAR HEMOGLOBIN 23.5 pg (28.0-32.0); MEAN CORPUSCULAR VOLUME 75.2 fL (81.0-99.0); MEAN PLATELET VOLUME 10.3 fl (7.4-10.4); PLATELET 265 x1000/uL (130-400); RED BLOOD CELL COUNT 3.04 mill/uL (4.2-5.4)
[2018-10-05 06:02] LABS: CHLORIDE 114 mEq/L (98-107)
[2018-10-05 06:28] LABS: CLARITY URINE CLEAR (CLEAR); COLOR URINE YELLOW (YELLOW); KETONES URINE NEGATIVE (NEGATIVE); LEUKOCYTE ESTERASE URINE TRACE (NEGATIVE); NITRITE URINE NEGATIVE (NEGATIVE); OCCULT BLOOD URINE NEGATIVE (NEGATIVE); PROTEIN URINE NEGATIVE (NEGATIVE); SPECIFIC GRAVITY URINE 1.019 (1.005-1.030)
[2018-10-05] MEDS ORDERED: CEPHALEXIN 250MG CAPSULE PO ONE (07:00)
[2018-10-05 07:09] LABS: ATYPICAL LYMPHOCYTES 1; NUCLEATED RED BLOOD CELLS 116 /100 WBC; PLATELET ESTIMATE NORMAL
[2018-10-05 09:41] VITALS: BP 105/59
== END 2018-10-05 09:51 | disposition home or self-care (01) ==
LOC: ER 00:20
DX: D57.00 Hb-SS disease with crisis, unspecified (principal); N39.0 Urinary tract infection, site not specified; Z90.49 Acquired absence of other specified parts of digestive tract; Z88.1 Allergy status to other antibiotic agents
CPT/HCPCS: 36415; 80053; 81003; 81025; 85025; 85044; 96374; 96376; 99283; J1170; Q0163

== ENCOUNTER 2019-01-08 20:57 | Emergency (ER) | payer MEDICAID ==
[~2019-01-08] VITALS: Ht 167.6 cm; Wt 60.0 kg
[2019-01-09 01:01] LABS: CLARITY URINE CLEAR (CLEAR); COLOR URINE YELLOW (YELLOW); KETONES URINE NEGATIVE (NEGATIVE); LEUKOCYTE ESTERASE URINE 2+ (NEGATIVE); NITRITE URINE NEGATIVE (NEGATIVE); OCCULT BLOOD URINE 3+ (NEGATIVE); PH URINE 5.5 (4.5-8.0); PROTEIN URINE NEGATIVE (NEGATIVE); SPECIFIC GRAVITY URINE 1.016 (1.005-1.030)
[2019-01-09 01:34] LABS: HEMATOCRIT. 23.1 % (36.0-48.0); HEMOGLOBIN. 7.7 g/dL (12.0-16.0); MEAN CORPUSCULAR HEMOGLOBIN 23.8 pg (28.0-32.0); MEAN CORPUSCULAR VOLUME 71.5 fL (81.0-99.0); MEAN PLATELET VOLUME 9.4 fl (7.4-10.4); PLATELET 234 x1000/uL (130-400); RED BLOOD CELL COUNT 3.23 mill/uL (4.2-5.4); RED CELL DISTRIBUTION WIDTH 25.2 % (11.6-14.6)
[2019-01-09 01:38] LABS: CHLORIDE 111 mEq/L (98-107)
[2019-01-09] MEDS ORDERED: METRONIDAZOLE 500MG TABLET PO ONE (02:00)
[2019-01-09] MEDS ORDERED: LEVOFLOXACIN 500MG PREMIX 100 ML IV ONE (02:00)
[2019-01-09] MEDS ORDERED: HYDROMORPHONE HCL/PF 2MG/ML CPJ IV ONE (02:00)
[2019-01-09 02:32] LABS: ATYPICAL LYMPHOCYTES 1; NUCLEATED RED BLOOD CELLS 35 /100 WBC; PLATELET ESTIMATE NORMAL
[2019-01-09] MEDS ORDERED: METRONIDAZOLE 500MG TABLET PO SCH (03:38)
[2019-01-09] MEDS ORDERED: HYDROMORPHONE HCL/PF 2MG/ML CPJ IV SCH (05:00)
[2019-01-09 05:30] VITALS: BP 106/56
== END 2019-01-09 05:40 | disposition home or self-care (01) ==
LOC: ER 20:57
DX: N39.0 Urinary tract infection, site not specified (principal); D57.00 Hb-SS disease with crisis, unspecified; F17.200 Nicotine dependence, unspecified, uncomplicated; Z88.1 Allergy status to other antibiotic agents; Z90.49 Acquired absence of other specified parts of digestive tract
CPT/HCPCS: 36415; 80053; 81003; 81025; 85025; 85044; 85660; 87086; 96365; 96375; 96376; 99283; J1170; J1956; Z7610

== ENCOUNTER 2019-03-02 10:47 | Inpatient (IN) | payer MEDICAID ==
[~2019-03-02] VITALS: Ht 167.6 cm; Wt 62.1 kg
[2019-03-02] VITALS (8 sets, daily range): BP systolic 98–115; BP diastolic 53–64
[2019-03-02] MEDS ORDERED: ONDANSETRON HCL 4MG/2ML INJ IV STA (11:31)
[2019-03-02] MEDS ORDERED: MORPHINE SULFATE 4 MG/ML CPJ (NOT FOR IM USE) IV STA (11:31)
[2019-03-02] MEDS ORDERED: SODIUM CHLORIDE 0.9% 1000ML BAG (SEPSIS BOLUS) IV ONE (11:45)
[2019-03-02 11:59] LABS: CHLORIDE 108 mEq/L (98-107)
[2019-03-02 12:01] LABS: HEMATOCRIT. 26.5 % (36.0-48.0); HEMOGLOBIN. 8.5 g/dL (12.0-16.0); MEAN CORPUSCULAR HEMOGLOBIN 22.9 pg (28.0-32.0); MEAN CORPUSCULAR VOLUME 71.9 fL (81.0-99.0); MEAN PLATELET VOLUME 9.8 fl (7.4-10.4); PLATELET 312 x1000/uL (130-400); RED BLOOD CELL COUNT 3.69 mill/uL (4.2-5.4); RED CELL DISTRIBUTION WIDTH 17.4 % (11.6-14.6)
[2019-03-02 12:02] LABS: INR 1.1; PARTIAL THROMBOPLASTIN TIME 32.1 sec (23.4-31.0)
[2019-03-02 12:03] LABS: ETHANOL BLOOD < 10 mg/dL
[2019-03-02 12:10] LABS: BG DEOXYHEMOGLOBIN 4.3 % (0.0-5.0); BG FRACTION INSPIRED OXYGEN 21; BG HCO3 ACT 20.1 mmol/L (22.0-26.0); BG METHEMOGLOBIN 0.7 % (0.0-1.5); BG OXYGEN SATURATION 95.5 % (92.0-98.5); BG PCO2 32.7 mmHg (35.0-45.0); BG PH 7.407 (7.350-7.450); BG PO2 83.2 mmHg (75.0-100.0); BG SAMPLE SITE LEFT BRACHIAL; BG TOTAL HEMOGLOBIN 7.8 g/dL (12.0-18.0); BG VENT MODE ROOM AIR
[2019-03-02 12:14] LABS: HCG SCREEN NEGATIVE
[2019-03-02 12:21] LABS: NUCLEATED RED BLOOD CELLS 5 /100 WBC
[2019-03-02 12:22] LABS: PLATELET ESTIMATE NORMAL
[2019-03-02] MEDS ORDERED: MORPHINE SULFATE 4 MG/ML CPJ (NOT FOR IM USE) IV ONE (12:30)
[2019-03-02] MEDS ORDERED: LEVOFLOXACIN 500MG PREMIX 100 ML IV ONE (12:30)
[2019-03-02 13:30] LABS: CLARITY URINE CLEAR (CLEAR); COLOR URINE YELLOW (YELLOW); KETONES URINE NEGATIVE (NEGATIVE); LEUKOCYTE ESTERASE URINE NEGATIVE (NEGATIVE); NITRITE URINE NEGATIVE (NEGATIVE); OCCULT BLOOD URINE 1+ (NEGATIVE); PROTEIN URINE NEGATIVE (NEGATIVE)
[2019-03-02] MEDS ORDERED: IPRATROPIUM/ALBUTEROL 0.5-3(2.5)MG/3ML NEB INH PRN (13:30)
[2019-03-02] MEDS ORDERED: DOCUSATE SODIUM 100MG CAPSULE PO PRN (13:30)
[2019-03-02] MEDS ORDERED: CLONIDINE 0.1MG TABLET PO PRN (13:30)
[2019-03-02] MEDS ORDERED: MAGNESIUM/ALUMINUM HYDROXIDE/SIMETHICONE 30ML UDC PO PRN (13:30)
[2019-03-02 13:40] LABS: *AMPHETAMINES SCREEN URINE NEGATIVE (NEGATIVE); *BARBITURATES SCREEN URINE NEGATIVE (NEGATIVE); *BENZODIAZEPINES SCREEN URINE NEGATIVE (NEGATIVE); *COCAINE SCREEN URINE NEGATIVE (NEGATIVE)
[2019-03-02 13:41] LABS: CANNABINOID URINE SCREEN NEGATIVE (NEGATIVE); METHADONE URINE SCREEN NEGATIVE (NEGATIVE); PHENCYCLIDINE URINE SCREEN NEGATIVE (NEGATIVE)
[2019-03-02 13:43] LABS: PHOSPHORUS 1.9 mg/dL (2.5-4.9)
[2019-03-02 13:54] LABS: OPIATES URINE SCREEN PRESUMTIVE POSITIVE (NEGATIVE)
[2019-03-02] MEDS ORDERED: LIDOCAINE HCL/PF 1% 2ML VIAL ONE (13:59)
[2019-03-02] MEDS ORDERED: IPRATROPIUM/ALBUTEROL 0.5-3(2.5)MG/3ML NEB HHN PRN (14:30)
[2019-03-02 15:05] LABS: CREATINE KINASE 24 IU/L (26-192)
[2019-03-02 15:06] LABS: CREATINE KINASE MB FRACTION < 1.0 ng/mL (0.5-3.6)
[2019-03-02] MEDS: ENOXAPARIN 40MG/0.4ML SYR SUBCUT SCH ×2 (16:00→16:52)
[2019-03-02] MEDS: AZITHROMYCIN 500 MG TABLET PO SCH (16:44)
[2019-03-02] MEDS: GUAIFENESIN 200MG/10ML SUGAR FREE UDC PO PRN (16:44)
[2019-03-02] MEDS: HYDROMORPHONE HCL/PF 2MG/ML CPJ IV PRN ×2 (16:49→22:12)
[2019-03-02] MEDS: DIPHENHYDRAMINE 50MG/ML VIAL IV PRN (17:25)
[2019-03-02] MEDS: ACETAMINOPHEN 325MG TABLET PO PRN (19:32)
[2019-03-02] MEDS ORDERED: DEXTROSE 50% WATER 50ML SYRINGE IV PRN (21:15)
[2019-03-02] MEDS: INSULIN LISPRO 100 UNITS/ML SUBCUT SCH (21:15)
[2019-03-02] MEDS: IPRATROPIUM/ALBUTEROL 0.5-3(2.5)MG/3ML NEB HHN SCH (21:40)
[2019-03-02] MEDS: BLOOD SUGAR DIAGNOSTIC STRIP TEST SCH (22:06)
[2019-03-02] MEDS: GUAIFENESIN 600MG ER TABLET PO SCH (22:06)
[2019-03-03] VITALS (15 sets, daily range): BP systolic 92–125; BP diastolic 44–111
[2019-03-03 00:11] LABS: CREATINE KINASE MB FRACTION < 1.0 ng/mL (0.5-3.6)
[2019-03-03 00:13] LABS: CREATINE KINASE 33 IU/L (26-192)
[2019-03-03] MEDS: IPRATROPIUM/ALBUTEROL 0.5-3(2.5)MG/3ML NEB HHN SCH ×3 (01:35→19:56)
[2019-03-03] MEDS: ACETAMINOPHEN 325MG TABLET PO PRN ×2 (01:41→13:34)
[2019-03-03] MEDS: DIPHENHYDRAMINE 50MG/ML VIAL IV PRN ×4 (01:42→21:22)
[2019-03-03] MEDS: BLOOD SUGAR DIAGNOSTIC STRIP TEST SCH ×4 (05:42→21:00)
[2019-03-03] MEDS: INSULIN LISPRO 100 UNITS/ML SUBCUT SCH ×4 (07:20→21:00)
[2019-03-03] MEDS: HYDROMORPHONE HCL/PF 2MG/ML CPJ IV PRN ×5 (08:17→21:37)
[2019-03-03] MEDS: GUAIFENESIN 600MG ER TABLET PO SCH ×2 (08:26→21:22)
[2019-03-03] MEDS: AZITHROMYCIN 500 MG TABLET PO SCH (08:26)
[2019-03-03] MEDS: ONDANSETRON HCL 4MG/2ML INJ IV PRN ×2 (08:26→21:22)
[2019-03-03 08:35] LABS: HEMATOCRIT. 25.4 % (36.0-48.0); HEMOGLOBIN. 8.1 g/dL (12.0-16.0); MEAN CORPUSCULAR HEMOGLOBIN 22.6 pg (28.0-32.0); MEAN CORPUSCULAR VOLUME 70.6 fL (81.0-99.0); MEAN PLATELET VOLUME 9.7 fl (7.4-10.4); PLATELET 277 x1000/uL (130-400); RED CELL DISTRIBUTION WIDTH 17.6 % (11.6-14.6)
[2019-03-03 08:44] LABS: CHLORIDE 108 mEq/L (98-107)
[2019-03-03 08:52] LABS: LDL CHOLESTEROL 68 mg/dL (5-100)
[2019-03-03 08:54] LABS: HDL CHOLESTEROL 45 mg/dL (40-59)
[2019-03-03 11:14] LABS: PLATELET ESTIMATE NORMAL
[2019-03-03] MEDS: LEVOFLOXACIN 500MG PREMIX 100 ML IV SCH (13:22)
[2019-03-03] MEDS: HYDROCODONE/ACETAMINOPHEN 5/325MG TABLET PO PRN (13:34)
[2019-03-03] MEDS: ENOXAPARIN 40MG/0.4ML SYR SUBCUT SCH (15:17)
[2019-03-03] MEDS: GUAIFENESIN 200MG/10ML SUGAR FREE UDC PO PRN (21:22)
[2019-03-04] VITALS (10 sets, daily range): BP systolic 96–130; BP diastolic 43–71
[2019-03-04] MEDS: HYDROMORPHONE HCL/PF 2MG/ML CPJ IV PRN ×8 (00:36→23:37)
[2019-03-04] MEDS: ACETAMINOPHEN 325MG TABLET PO PRN (00:42)
[2019-03-04] MEDS: IPRATROPIUM/ALBUTEROL 0.5-3(2.5)MG/3ML NEB HHN SCH ×4 (01:17→22:02)
[2019-03-04] MEDS: DIPHENHYDRAMINE 50MG/ML VIAL IV PRN ×4 (04:49→23:36)
[2019-03-04] MEDS: ONDANSETRON HCL 4MG/2ML INJ IV PRN ×2 (05:05→11:19)
[2019-03-04] MEDS: BLOOD SUGAR DIAGNOSTIC STRIP TEST SCH ×4 (06:50→20:42)
[2019-03-04 07:08] LABS: HEMOGLOBIN. 7.2 g/dL (12.0-16.0); MEAN CORPUSCULAR HEMOGLOBIN 22.2 pg (28.0-32.0); MEAN CORPUSCULAR VOLUME 70.6 fL (81.0-99.0); MEAN PLATELET VOLUME 10.1 fl (7.4-10.4); PLATELET 238 x1000/uL (130-400); RED BLOOD CELL COUNT 3.25 mill/uL (4.2-5.4); RED CELL DISTRIBUTION WIDTH 17.8 % (11.6-14.6)
[2019-03-04] MEDS: INSULIN LISPRO 100 UNITS/ML SUBCUT SCH ×4 (07:20→20:42)
[2019-03-04 07:25] LABS: CHLORIDE 107 mEq/L (98-107)
[2019-03-04 10:20] LABS: PLATELET ESTIMATE NORMAL
[2019-03-04] MEDS: AZITHROMYCIN 500 MG TABLET PO SCH (10:40)
[2019-03-04] MEDS: GUAIFENESIN 600MG ER TABLET PO SCH ×2 (10:40→20:39)
[2019-03-04] MEDS ORDERED: NALOXONE HCL 0.4 MG/ML 1ML VIAL IV PRN (13:15)
[2019-03-04] MEDS: LEVOFLOXACIN 500MG PREMIX 100 ML IV SCH (13:19)
[2019-03-04] MEDS: FOLIC ACID 1MG TABLET PO SCH (13:26)
[2019-03-04] MEDS: ENOXAPARIN 40MG/0.4ML SYR SUBCUT SCH (16:00)
[2019-03-05] VITALS (11 sets, daily range): BP systolic 95–115; BP diastolic 46–68
[2019-03-05] MEDS: IPRATROPIUM/ALBUTEROL 0.5-3(2.5)MG/3ML NEB HHN SCH ×3 (01:49→21:31)
[2019-03-05] MEDS: HYDROMORPHONE HCL/PF 2MG/ML CPJ IV PRN ×7 (02:44→23:35)
[2019-03-05 04:19] LABS: HEMATOCRIT. 21.6 % (36.0-48.0); MEAN CORPUSCULAR HEMOGLOBIN 21.7 pg (28.0-32.0); MEAN CORPUSCULAR VOLUME 68.2 fL (81.0-99.0); MEAN PLATELET VOLUME 10.2 fl (7.4-10.4); PLATELET 336 x1000/uL (130-400); RED BLOOD CELL COUNT 3.17 mill/uL (4.2-5.4); RED CELL DISTRIBUTION WIDTH 19.1 % (11.6-14.6)
[2019-03-05 04:59] LABS: CHLORIDE 106 mEq/L (98-107)
[2019-03-05 05:40] LABS: HEMOGLOBIN. 6.9 g/dL (12.0-16.0)
[2019-03-05] MEDS: BLOOD SUGAR DIAGNOSTIC STRIP TEST SCH ×4 (05:59→20:19)
[2019-03-05] MEDS: INSULIN LISPRO 100 UNITS/ML SUBCUT SCH ×4 (05:59→20:19)
[2019-03-05 09:10] LABS: NUCLEATED RED BLOOD CELLS 1 /100 WBC; PLATELET ESTIMATE NORMAL
[2019-03-05] MEDS: FOLIC ACID 1MG TABLET PO SCH (09:34)
[2019-03-05] MEDS: GUAIFENESIN 600MG ER TABLET PO SCH ×2 (09:34→20:14)
[2019-03-05] MEDS: DIPHENHYDRAMINE 50MG/ML VIAL IV PRN (10:13)
[2019-03-05] MEDS: LEVOFLOXACIN 500MG PREMIX 100 ML IV SCH (12:47)
[2019-03-05] MEDS ORDERED: DIPHENHYDRAMINE 25MG CAPSULE PO SCH (14:30)
[2019-03-05] MEDS ORDERED: ACETAMINOPHEN 650MG/20.3ML UDC PO SCH (14:30)
[2019-03-05] MEDS: ENOXAPARIN 40MG/0.4ML SYR SUBCUT SCH (16:00)
[2019-03-06] VITALS (7 sets, daily range): BP systolic 100–108; BP diastolic 47–63
[2019-03-06] MEDS: DIPHENHYDRAMINE 50MG/ML VIAL IV PRN ×3 (00:23→21:49)
[2019-03-06] MEDS: IPRATROPIUM/ALBUTEROL 0.5-3(2.5)MG/3ML NEB HHN SCH ×4 (02:38→20:44)
[2019-03-06] MEDS: HYDROMORPHONE HCL/PF 2MG/ML CPJ IV PRN ×2 (03:23→06:39)
[2019-03-06] MEDS: BLOOD SUGAR DIAGNOSTIC STRIP TEST SCH ×4 (06:17→21:00)
[2019-03-06] MEDS: INSULIN LISPRO 100 UNITS/ML SUBCUT SCH ×4 (06:18→21:00)
[2019-03-06 07:11] LABS: HEMOGLOBIN. 7.8 g/dL (12.0-16.0); MEAN CORPUSCULAR HEMOGLOBIN 22.7 pg (28.0-32.0); MEAN CORPUSCULAR VOLUME 69.8 fL (81.0-99.0); RED BLOOD CELL COUNT 3.44 mill/uL (4.2-5.4); RED CELL DISTRIBUTION WIDTH 22.2 % (11.6-14.6)
[2019-03-06 08:42] LABS: CHLORIDE 106 mEq/L (98-107)
[2019-03-06] MEDS: FOLIC ACID 1MG TABLET PO SCH (09:01)
[2019-03-06] MEDS: GUAIFENESIN 600MG ER TABLET PO SCH ×2 (09:01→21:44)
[2019-03-06] MEDS: HYDROCODONE/ACETAMINOPHEN 5/325MG TABLET PO PRN ×3 (09:23→18:26)
[2019-03-06] MEDS: LEVOFLOXACIN 500MG PREMIX 100 ML IV SCH (11:54)
[2019-03-06 13:41] LABS: PLATELET ESTIMATE SLIGHTLY INCREASED
[2019-03-06 13:45] LABS: PLATELET 419 x1000/uL (130-400)
[2019-03-06] MEDS: ENOXAPARIN 40MG/0.4ML SYR SUBCUT SCH (16:00)
[2019-03-07] MEDS: HYDROCODONE/ACETAMINOPHEN 5/325MG TABLET PO PRN ×2 (00:04→15:37)
[2019-03-07] MEDS: IPRATROPIUM/ALBUTEROL 0.5-3(2.5)MG/3ML NEB HHN SCH ×3 (02:41→22:08)
[2019-03-07] MEDS: METRONIDAZOLE 500 MG PREMIX 100 ML IV SCH ×3 (02:50→17:41)
[2019-03-07 04:10] VITALS: BP 105/60
[2019-03-07] MEDS: DIPHENHYDRAMINE 50MG/ML VIAL IV PRN ×3 (04:23→18:51)
[2019-03-07] MEDS: INSULIN LISPRO 100 UNITS/ML SUBCUT SCH ×4 (05:55→20:18)
[2019-03-07] MEDS: BLOOD SUGAR DIAGNOSTIC STRIP TEST SCH ×4 (05:55→20:18)
[2019-03-07 07:14] LABS: HEMATOCRIT. 23.8 % (36.0-48.0); MEAN CORPUSCULAR HEMOGLOBIN 23.2 pg (28.0-32.0); MEAN PLATELET VOLUME 9.8 fl (7.4-10.4); PLATELET 563 x1000/uL (130-400); RED BLOOD CELL COUNT 3.44 mill/uL (4.2-5.4); RED CELL DISTRIBUTION WIDTH 24.4 % (11.6-14.6)
[2019-03-07 07:17] LABS: INR 1.1; PROTHROMBIN TIME 11.6 sec (9.6-11.0)
[2019-03-07 07:54] LABS: CHLORIDE 107 mEq/L (98-107)
[2019-03-07 08:00] VITALS: BP 105/55
[2019-03-07] MEDS: FOLIC ACID 1MG TABLET PO SCH (08:41)
[2019-03-07] MEDS: GUAIFENESIN 600MG ER TABLET PO SCH ×2 (08:41→20:18)
[2019-03-07] MEDS: LEVOFLOXACIN 500MG PREMIX 100 ML IV SCH (11:05)
[2019-03-07] MEDS: HYDROMORPHONE HCL/PF 2MG/ML CPJ IV PRN ×3 (11:21→21:04)
[2019-03-07 12:00] VITALS: BP 103/55
[2019-03-07 13:48] LABS: NUCLEATED RED BLOOD CELLS 3 /100 WBC; PLATELET ESTIMATE INCREASED
[2019-03-07] MEDS: SODIUM CHLORIDE 0.9% 1,000 ML IV SCH (14:38)
[2019-03-07 15:35] VITALS: BP 102/55
[2019-03-07] MEDS: ENOXAPARIN 40MG/0.4ML SYR SUBCUT SCH (16:00)
[2019-03-07 20:00] VITALS: BP 99/52
[2019-03-07] MEDS: HYDROXYUREA 500MG CAPSULE PO SCH (20:18)
[2019-03-07] MEDS: ACETAMINOPHEN 325MG TABLET PO PRN (20:32)
[2019-03-08] VITALS: BP 100/65
[2019-03-08] MEDS: HYDROMORPHONE HCL/PF 2MG/ML CPJ IV PRN ×6 (01:06→23:25)
[2019-03-08] MEDS: DIPHENHYDRAMINE 50MG/ML VIAL IV PRN ×2 (02:32→15:07)
[2019-03-08] MEDS: IPRATROPIUM/ALBUTEROL 0.5-3(2.5)MG/3ML NEB HHN SCH ×3 (02:52→20:20)
[2019-03-08] MEDS: METRONIDAZOLE 500 MG PREMIX 100 ML IV SCH ×3 (03:33→19:30)
[2019-03-08] MEDS: SODIUM CHLORIDE 0.9% 1,000 ML IV SCH ×2 (03:35→19:30)
[2019-03-08 04:00] VITALS: BP 111/67
[2019-03-08] MEDS: INSULIN LISPRO 100 UNITS/ML SUBCUT SCH ×4 (06:25→21:00)
[2019-03-08] MEDS: BLOOD SUGAR DIAGNOSTIC STRIP TEST SCH ×4 (06:25→21:00)
[2019-03-08 06:29] LABS: HEMATOCRIT. 21.8 % (36.0-48.0); HEMOGLOBIN. 7.1 g/dL (12.0-16.0); MEAN CORPUSCULAR HEMOGLOBIN 22.5 pg (28.0-32.0); MEAN CORPUSCULAR VOLUME 69.3 fL (81.0-99.0); MEAN PLATELET VOLUME 10.1 fl (7.4-10.4); PLATELET 584 x1000/uL (130-400); RED BLOOD CELL COUNT 3.14 mill/uL (4.2-5.4); RED CELL DISTRIBUTION WIDTH 24.9 % (11.6-14.6)
[2019-03-08 06:45] LABS: CHLORIDE 108 mEq/L (98-107)
[2019-03-08] MEDS ORDERED: POTASSIUM CHLORIDE 20MEQ TABLET SR PO NR (07:00)
[2019-03-08 08:09] VITALS: BP 98/52
[2019-03-08] MEDS: HYDROXYUREA 500MG CAPSULE PO SCH ×2 (08:45→16:33)
[2019-03-08] MEDS: GUAIFENESIN 600MG ER TABLET PO SCH (08:45)
[2019-03-08] MEDS: FOLIC ACID 1MG TABLET PO SCH (08:45)
[2019-03-08] MEDS: LEVOFLOXACIN 500MG PREMIX 100 ML IV SCH (11:10)
[2019-03-08 12:00] VITALS: BP 108/61
[2019-03-08] MEDS ORDERED: BENZONATATE 100MG CAPSULE PO PRN (12:45)
[2019-03-08 13:42] LABS: PLATELET ESTIMATE INCREASED
[2019-03-08 16:00] VITALS: BP 96/54
[2019-03-08] MEDS: ENOXAPARIN 40MG/0.4ML SYR SUBCUT SCH (16:00)
[2019-03-08 20:00] VITALS: BP 111/51
[2019-03-09] VITALS: BP 111/51
[2019-03-09] MEDS: DIPHENHYDRAMINE 50MG/ML VIAL IV PRN ×3 (00:15→22:42)
[2019-03-09] MEDS: METRONIDAZOLE 500 MG PREMIX 100 ML IV SCH ×3 (02:20→18:47)
[2019-03-09] MEDS: IPRATROPIUM/ALBUTEROL 0.5-3(2.5)MG/3ML NEB HHN SCH ×4 (02:40→21:49)
[2019-03-09] MEDS: HYDROMORPHONE HCL/PF 2MG/ML CPJ IV PRN ×6 (03:19→20:41)
[2019-03-09 04:00] VITALS: BP 102/61
[2019-03-09] MEDS: BLOOD SUGAR DIAGNOSTIC STRIP TEST SCH ×4 (06:45→20:42)
[2019-03-09] MEDS: INSULIN LISPRO 100 UNITS/ML SUBCUT SCH ×4 (06:48→20:42)
[2019-03-09 08:00] VITALS: BP 102/59
[2019-03-09] MEDS: FOLIC ACID 1MG TABLET PO SCH (08:52)
[2019-03-09] MEDS: HYDROXYUREA 500MG CAPSULE PO SCH ×2 (08:52→16:49)
[2019-03-09] MEDS: LEVOFLOXACIN 500MG PREMIX 100 ML IV SCH (10:52)
[2019-03-09 12:00] VITALS: BP 100/56
[2019-03-09 12:28] LABS: CHLORIDE 109 mEq/L (98-107)
[2019-03-09 12:30] LABS: HEMATOCRIT. 23.8 % (36.0-48.0); HEMOGLOBIN. 7.5 g/dL (12.0-16.0); MEAN CORPUSCULAR HEMOGLOBIN 21.6 pg (28.0-32.0); MEAN CORPUSCULAR VOLUME 68.5 fL (81.0-99.0); MEAN PLATELET VOLUME 9.6 fl (7.4-10.4); PLATELET 701 x1000/uL (130-400); RED BLOOD CELL COUNT 3.48 mill/uL (4.2-5.4); RED CELL DISTRIBUTION WIDTH 25.5 % (11.6-14.6)
[2019-03-09 14:03] LABS: PLATELET ESTIMATE MARKEDLY INCREASED
[2019-03-09 16:00] VITALS: BP 103/54
[2019-03-09] MEDS: ENOXAPARIN 40MG/0.4ML SYR SUBCUT SCH (16:00)
[2019-03-09 20:00] VITALS: BP 104/61
[2019-03-09] MEDS: SODIUM CHLORIDE 0.9% 1,000 ML IV SCH (21:16)
[2019-03-10] VITALS (7 sets, daily range): BP systolic 98–108; BP diastolic 44–61
[2019-03-10] MEDS: HYDROMORPHONE HCL/PF 2MG/ML CPJ IV PRN ×4 (00:08→14:12)
[2019-03-10] MEDS: IPRATROPIUM/ALBUTEROL 0.5-3(2.5)MG/3ML NEB HHN SCH ×3 (01:31→15:00)
[2019-03-10] MEDS: METRONIDAZOLE 500 MG PREMIX 100 ML IV SCH ×2 (04:09→11:41)
[2019-03-10] MEDS: BLOOD SUGAR DIAGNOSTIC STRIP TEST SCH ×2 (06:05→11:41)
[2019-03-10] MEDS: INSULIN LISPRO 100 UNITS/ML SUBCUT SCH ×2 (06:07→11:41)
[2019-03-10] MEDS: FOLIC ACID 1MG TABLET PO SCH (08:19)
[2019-03-10] MEDS: DIPHENHYDRAMINE 50MG/ML VIAL IV PRN (10:14)
[2019-03-10] MEDS: HYDROXYUREA 500MG CAPSULE PO SCH (10:17)
[2019-03-10] MEDS: SODIUM CHLORIDE 0.9% 1,000 ML IV SCH (11:41)
[2019-03-10] MEDS: ENOXAPARIN 40MG/0.4ML SYR SUBCUT SCH (16:00)
== END 2019-03-10 17:00 | disposition home or self-care (01) | DRG 720 ==
LOC: ER 10:47 → 3WST 13:19 → EDBEDREQ 13:21 → ENRESERV 13:58 → 5WST 03-04 21:13 → 6WST 03-09 19:06
PROVIDERS: ADMIT Internal Medicine; ATTEND Internal Medicine
PROC: 4A043B0 Measurement of Venous Pressure, Central, Percutaneous Approach (ICD-10-PCS; principal; 2019-03-02)
PROC: 30233N1 Transfusion of Nonautologous Red Blood Cells into Peripheral Vein, Percutaneous Approach (ICD-10-PCS; 2019-03-05)
DX: A41.9 Sepsis, unspecified organism (principal); J96.00 Acute respiratory failure, unspecified whether with hypoxia or hypercapnia; D57.00 Hb-SS disease with crisis, unspecified; J18.1 Lobar pneumonia, unspecified organism; I27.20 Pulmonary hypertension, unspecified; M31.6 Other giant cell arteritis; M54.9 Dorsalgia, unspecified; G89.4 Chronic pain syndrome; R74.0 Nonspecific elevation of levels of transaminase and lactic acid dehydrogenase [LDH]; R73.9 Hyperglycemia, unspecified; R65.20 Severe sepsis without septic shock; F17.210 Nicotine dependence, cigarettes, uncomplicated; J45.909 Unspecified asthma, uncomplicated; Z87.11 Personal history of peptic ulcer disease; Z88.1 Allergy status to other antibiotic agents; Z90.49 Acquired absence of other specified parts of digestive tract
CPT/HCPCS: 36415; 36600; 71045; 71250; 76700; 80048; 80061; 80305; 80320; 82375; 82550; 82553; 82805; 82962; 83036; 83605; 83735; 83880; 84100; 84145; 84443; 84484; 84703; 85044; 85384; 86140; 86850; 86900; 86920; 93005; 93970; 94640; 96365; 96375; 96376; 97162; 99291; J1170; J1200; J1650; J1956; J2270; J2405; J3490; J7030; J7040; J7050; J7620; P9016; Q0163; G0480